=== PATIENT | male | born 1965 | race Caucasian/White ===

== ENCOUNTER 2023-10-04 19:25 | Inpatient (IN) | payer MEDICAID, SELFPAY ==
[2023-10-04 19:26] VITALS: BP 119/82; PULSE 144; RESP 18; TEMP 36.7; O2SAT 97; BMI 20.9
--- NOTE | 2023-10-04 19:41 | EKG12_ITS ---
Test Reason : DYSRHYTHMIA Blood Pressure : / mmHG Vent. Rate : 142 BPM Atrial Rate : 142 BPM P-R Int : 150 ms QRS Dur : 078 ms QT Int : 250 ms P-R-T Axes : 038 031 039 degrees QTc Int : 384 ms Critical Test Result: High HR Sinus tachycardia Septal infarct , age undetermined Abnormal ECG Confirmed by JAYESH MAYNARD, CAL ([id number]), editor producer CARLOS MATA ([id number]) on 10/06/2023 9:54:16 AM Referred By: Confirmed By:CAL MCCONNELL MD
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
[2023-10-04 19:47] VITALS: BP 119/82; PULSE 144; RESP 18; TEMP 36.7; O2SAT 97
--- NOTE | 2023-10-04 20:10 | CT_ITS ---
EXAM: CT Abdomen And Pelvis W/ Contrast Injection HISTORY: pressure wound TECHNIQUE: Routine protocol CT abdomen pelvis. IV Contrast: IV 100mL Isovue-370 . Oral Contrast: without. Sagittal and coronal images were reconstructed. RADIATION DOSAGE (If Supplied By Facility): CTDIvol = ( 11.79 ) mGy, DLP = ( 763.65 ) mGycm Individualized dose optimization techniques were used for this CT. COMPARISON: None. LIMITATIONS: None. FINDINGS: LOWER CHEST: Dependent atelectasis in the lung bases. LIVER: Unremarkable. GALLBLADDER/BILE DUCTS: Unremarkable. PANCREAS: Unremarkable. SPLEEN: Unremarkable. ADRENAL GLANDS: Calcifications in the right adrenal. KIDNEYS / URETERS: Small calculus in the right kidney and likely a tiny calculus in the left kidney. Prominent enhancing wall of the ureters to the renal pelvis bilaterally with periureteral stranding greater on the left. No hydronephrosis. BOWEL / MESENTERY: Fluid distended nondilated small bowel in the mid through lower abdomen. No bowel obstruction. APPENDIX: Identified and normal. No evidence of acute appendicitis. PERITONEUM: No free air. No free fluid. VESSELS: Abdominal aorta is normal caliber. RETROPERITONEUM: Unremarkable. REPRODUCTIVE ORGANS: Unremarkable. BLADDER: Mildly distended with lobulated contour. Diffuse wall thickening. ABDOMINAL WALL: No air in the soft tissues. Prominent inguinal lymph nodes bilaterally.. BONES: Degenerative changes of both hips with partial posterior subluxation of the right hip. Bony excrescences anteriorly at the anterior inferior iliac spine bilaterally, fragmentation and indistinct cortical margins, surrounding soft tissue thickening which extends about both hips. Questionable small bilateral joint effusion versus soft tissue thickening. Soft tissue thickening overlying the proximal femurs laterally at the greater trochanter bilaterally, greater on the right, with mild subcutaneous stranding. No definite cortical destruction or localized collection at these sites. There is also mild soft tissue thickening overlying the mid sacrum through coccyx, with no definite cortical destruction. Degenerative changes in the lumbar spine. OTHER: None. CT/Abdomen/Pelvis W IV Cont ONLY IMPRESSION: 1. Urinary bladder wall thickening consistent with cystitis or other process. Wall thickening of the ureters to the renal pelvis bilaterally likely secondary pyelitis. Other process including malignancy is not excluded. No hydronephrosis. 2. Bilateral nephrolithiasis. 3. Fluid distended small bowel consistent with ileus versus enteritis. 4. Changes about both hips especially at the anterior inferior iliac spine suspicious for osteomyelitis, to lesser extent along the greater trochanters and sacrum/coccyx. Soft tissue thickening about the hips may be inflammatory or reactive. MRI may be helpful to evaluate for osteomyelitis and/or joint effusion or septic joint. Electronically Signed: Dasha Stallworth MD at 21:03 EST ,
[2023-10-04 20:13] LABS: Absolute Lymphocyte Count 6.07 X10^3/uL (0.83-4.51); Absolute Neutrophil Count 23.2 X10^3/uL (2.0-7.7); Basophil# 0.16 X10^3/uL; Basophil% 0.5 % (0-1); Eosinophil# 0.24 X10^3/uL; Eosinophils% 0.7 % (0-5); Hematocrit 36.2 % (40-54); Hemoglobin 10.6 g/dL (13.0-16.5); Lymphocyte # 6.07 X10^3/ul (0.83-4.51); Mean Corp Hgb Conc 29.3 g/dL (32-36); Mean Corpuscular Hgb 24.9 pg (27.0-32.0); Mean Platelet Vol. 10.2 fl (6.2-12.0); Monocyte# 3.28 X10^3/uL; Monocyte% 9.7 % (0-10); NRBC Flagged by Analyzer 0.1 % (0-5); Neutrophil # 23.22 X10^3/uL (2.7-7.7); Neutrophil % 68.6 % (47-70); POSITIVE COUNT YES; POSITIVE DIFFERENTIAL YES; POSITIVE MORPHOLOGY YES; RBC Distribution Width CV 22.9 % (11.6-14.6); RBC Distribution Width SD 66.5 fl (35.1-43.9); Red Blood Count 4.26 M/mm3 (4.6-6.2)
[2023-10-04] MEDS: Acetaminophen 500 MG Tablet 1000 MG PO (20:16)
[2023-10-04] MEDS: 0.9% Normal Saline (1000mL) 1,000 ML 999 ML IV ×2 (20:17→22:02)
[2023-10-04 20:20] LABS: ALB/GLOB Ratio 0.5 RATIO (0.9-2.4); AST(SGOT) 18 U/L (15-37); Alanine Aminotransfer ALT/SGPT 23 U/L (16-61); Albumin, Serum 2.5 g/dL (3.2-5.0); Alkaline Phosphatase 186 U/L (45-117); Anion Gap 5 (5-15); BUN 16 mg/dL (7-18); BUN/Creat Ratio 17.9 RATIO (10-20); Calcium,Total 8.7 mg/dL (8.5-10.1); Chloride 108 mmol/L (98-107); Creatinine, Serum 0.89 mg/dL (0.70-1.30); EST Glomerular Filtration Rate 93 mL/min (>60); Est Glom Filt Rate - Afr Amer 113 mL/min (>60); Estimated Creatinine Clearance 98.18 ml/min; Glucose 114 mg/dL (74-106); Potassium 4.5 mmol/L (3.5-5.1); Protein, Total 7.5 g/dL (6.4-8.2); Sodium Level 137 mmol/L (136-145)
[2023-10-04 20:24] LABS: Differential Indicated SCAN CRITERIA MET; Platelet Count 833 K/mm3 (150-450); White Blood Count 33.8 K/mm3 (4.4-11.0)
[2023-10-04 20:32] LABS: Lactic Acid 2.7 mmol/L (0.4-1.9)
--- NOTE | 2023-10-04 20:32 | RAD_ITS ---
INDICATION: fever EXAMINATION/TECHNIQUE: X-RAY - XR Chest 1 View AP portable. 8:33 PM COMPARISON: None. FINDINGS: LINES/DEVICES: None. LUNGS: No consolidation. No pneumothorax. MEDIASTINUM: Unremarkable. CARDIAC SILHOUETTE: Not enlarged. BONES AND SOFT TISSUES: No acute abnormalities. Surgical hardware lower cervical upper thoracic spine. RAD/Chest 1 View (Portable) IMPRESSION: No evidence of active intrathoracic disease. Electronically Signed: Dasha Stallworth MD at 21:08 EST ,
[2023-10-04 20:37] LABS: Anisocytosis 2+; Differential Comment SCANNED
[2023-10-04 21:03] LABS: Bacteria 0 SEEN /hpf (None Seen); Mucous, Urine 0 SEEN /hpf (<or=2+); Red Blood Cells-Urine 0 SEEN /hpf (0-5); Squamous Epithelial Cells - UA 0 SEEN /hpf (0-5)
[2023-10-04 21:06] LABS: Color, Urine Yellow (Yellow); Glucose, Dipstick Normal (Normal); Ketone-Dipstick 5 mg/dl (Negative); Leukocyte Esterase-Dipstick 500 /ul (Negative); Nitrite-Dipstick Positive (Negative); Occult Blood-Urine 150 /ul (Negative); Protein-Dipstick 100 mg/dl (Negative); Specific Gravity, Urine 1.015 (1.002-1.030); Urine Bilirubin Dipstick Negative (Negative); Urine Clarity Cloudy (Clear); Urine Urobilinogen Normal (Normal)
[2023-10-04 21:20] LABS: International Normalized Ratio 1.3; Prothrombin Time (Protime)PT. 16.5 SECONDS (11.7-14.9)
[2023-10-04 21:21] LABS: Partial Thromboplast Time 40.7 Seconds (24.1-36.2)
[2023-10-04 21:26] VITALS: BP 114/71; PULSE 130; RESP 21; O2SAT 93
[2023-10-04 21:33] VITALS: BP 114/61; PULSE 112; RESP 23; TEMP 37; O2SAT 94
[2023-10-04 21:33] LABS: White Blood Cells >100 SEEN /hpf (0-5)
[2023-10-04] MEDS: Piperacil/Tazobactam 3.375 GM in 0.9% Normal Saline (50mL MB+) 50 ML IV (22:03)
[2023-10-04 22:06] VITALS: BP 124/72; PULSE 125; RESP 21; TEMP 38.3; O2SAT 97
[2023-10-04 22:30] VITALS: BP 111/72; PULSE 125; RESP 21; TEMP 38.3; O2SAT 94
[2023-10-04] MEDS: Vancomycin HCl 1,250 MG in 0.9% Normal Saline (250mL Bag) 250 ML 167 MG IV (22:55)
--- NOTE | 2023-10-04 23:06 | PCM.HP.STD ---
[facility] - General General Date of Service: 10/04/23 Chief Complaint: Fever. [facility] Narrative ELENA HARPER, is a 58 M who presents with fever lethargy. Patient was in his normal state of health today acutely ill after breakfast. He was having fever of the 100 405 Fahrenheit. Very wiped out. Patient has a known paraplegic that does have a chronic sacral decubitus ulcer. He states that the ulcer is actually was very large, so large. Clear festinate's, but it is overall healing. He is normally incontinent but does not have catheter nor straight cath but he uses a diaper. With his severe illness, he was sent to the hospital for evaluation. When he arrived, he was normotensive but tachycardic. Temp here was 38.3 centigrade. White count was profoundly elevated at 33.8 thousand, lactic acid was 2.7, urinalysis was grossly positive for urinary tract infection. He underwent a chest x-ray that was unremarkable. CAT scan of his abdomen pelvis showed urinary bladder wall thickening consistent with cystitis. Bilateral nephrolithiasis. Fluid distended small bowel consistent with ileus versus enteritis. Changes about both hips especially in the anterior inferior iliac spine suspicious for osteomyelitis, to a lesser extent along the greater trochanters and sacrum/coccyx. Patient received piperacillin/tazobactam and vancomycin in the emergency room. He did receive 3 L of IV fluids in the emergency room. States that he is currently feeling somewhat better at this time. PENDING SALE TO [facility] Medical History (Updated 10/04/23 @ 23:[address] Kelvin Metcalf DO) Paraplegia, unspecified Pulmonary emboli Sacral decubitus ulcer, stage IV Home Medications anagrelide 1 mg capsule 2 mg PO BID 10/04/23 [History Last Taken Unknown] apixaban 5 mg tablet (Eliquis) 5 mg PO BID 10/04/23 [History Last Taken Unknown] cyclobenzaprine 10 mg tablet 10 mg PO TID 10/04/23 [History Last Taken Unknown] gabapentin 400 mg capsule 400 mg PO QHS 10/04/23 [History Last Taken Unknown] Allergy/AdvReac Type Severity Reaction Status Date / Time No Known Allergies Allergy Verified 10/04/23 19:34 Surgical History (Updated 10/04/23 @ 23:[address] Kelvin Jopperi, DO) H/O Spinal surgery H/O splenectomy Social History (Updated 10/04/23 @ 23:[address] Kelvin Metcalf, DO) Smoking Status: Current every day smoker tobacco type: cigarettes alcohol intake: current alcohol intake frequency: a few times a week substance use type: marijuana ROS ROS Narrative Is a paraplegic. States that he gets short of breath when his legs are straightened out due to spasms of his legs. No chest pain, no rhinitis. All review of systems were negative except as mentioned above in the history of present illness and the other review of systems. Vital Signs Vital Signs Vital Signs: 10/04/23 19:26 10/04/23 19:47 10/04/23 19:47 Temperature 36.7 C 36.7 C Temperature Source Oral Oral Pulse Rate 144 H 144 H Respiratory Rate 18 18 Respiratory Pattern Blood Pressure 119/82 H 119/82 H Blood Pressure Mean 94 94 Pulse Ox 97 97 Oxygen Delivery Method Room Air Room Air Room Air 10/04/23 19:49 10/04/23 21:26 10/04/23 21:33 Temperature 37.0 C Temperature Source Oral Pulse Rate 130 H 112 H Respiratory Rate 21 H 23 H Respiratory Pattern Tachypnea Blood Pressure 114/71 114/61 Blood Pressure Mean 85 78 Pulse Ox 93 94 Oxygen Delivery Method Room Air Room Air 10/04/23 22:06 10/04/23 22:30 Temperature 38.3 C H 38.3 C H Temperature Source Oral Pulse Rate 125 H 125 H Respiratory Rate 21 H 21 H Respiratory Pattern Blood Pressure 124/72 H 111/72 Blood Pressure Mean 89 85 Pulse Ox 97 94 Oxygen Delivery Method Room Air Weight Weight: 75.8 kg Body Mass Index (BMI) 20.9 Physical Exam Const alert and no apparent distress Constitutional Narrative: Initially disoriented when he first arrived but came to quickly was otherwise appropriate. General Appearance: cooperative HEENT normocephalic, head/scalp atraumatic and moist oral mucous membranes Eyes EOMs intact bilaterally Eyes Narrative: Glasses. No icterus Neck no lymphadenopathy Neck Narrative: No thyromegaly Resp normal respiratory effort, no retractions, no use of accessory muscles and clear to auscultation bilaterally Cardio regular rate, regular rhythm, S1 normal heart sound and S2 normal heart sound GI normal to inspection, nondistended, normoactive bowel sounds, soft to palpation, non-tender and non-distended Extremity Extremity Narrative: Bilateral flexion contractures of the lower extremities. Skin Skin Narrative: Healing stage IV decubitus ulcer with defect distally. No purulence, no surrounding erythema appreciated. Neuro Neuro Narrative: Paraplegic. Moves upper extremities without difficulty. Sensorium / Orientation: awake and alert Psych affect normal Results Lab / Micro Data Attestation: I reviewed the patient's lab results. 10/04/23 19:40 10/04/23 19:40 Labs: Laboratory Results - last 24 hr 10/04/23 19:40: WBC 33.8 H*, RBC 4.26 L, Hgb 10.6 L, Hct 36.2 L, MCV 85.0, MCH 24.9 L, MCHC 29.3 L, RDW Std Deviation 66.5 H, RDW Coeff of Lauren 22.9 H, Plt Count 833 H*, MPV 10.2, Immature Gran % (Auto) 2.500 H, Neut % (Auto) 68.6, Lymph % (Auto) 18.0 L, [place] % (Auto) 9.7, Eos % (Auto) 0.7, Baso % (Auto) 0.5, Absolute Neuts (auto) 23.2 H, Absolute Lymphs (auto) 6.07 H, Nucleated RBC % 0.1, Differential Comment SCANNED, Diff Path Review March, Anisocytosis 2+, PT Cancelled, INR Cancelled, APTT Cancelled, Sodium 137, Potassium 4.5, Chloride 108 H, Carbon Dioxide 24.0, Anion Gap 5, BUN 16, Creatinine 0.89, Estim Creat Clear Calc 98.18, Est GFR (MDRD) Af Amer 113, Est GFR (MDRD) Non-Af 93, BUN/Creatinine Ratio 17.9, Glucose 114 H, Lactic Acid 2.7 H*, Calcium 8.7, Total Bilirubin 0.30, AST 18, ALT 23, Alkaline Phosphatase 186 H, Total Protein 7.5, Albumin 2.5 L, Globulin 5.0 H, Albumin/Globulin Ratio 0.5 L 10/04/23 20:55: Urine Color Yellow, Urine Clarity Cloudy, Urine pH 6.0, Ur Specific [place] 1.015, Urine Protein 100 H, Urine Glucose (UA) Normal, Urine Ketones 5 H, Urine Occult Blood 150 H, Urine Nitrite Positive H, Urine Bilirubin Negative, Urine Urobilinogen Normal, Ur Leukocyte Esterase 500 H, Urine RBC 0 SEEN, Urine WBC >100 SEEN, Ur Squamous Epith Cells 0 SEEN, Urine Bacteria 0 SEEN, Urine Mucus 0 SEEN 10/04/23 21:02: PT 16.5 H, INR 1.3, APTT 40.7 H Micro: Microbiology 10/04/23 19:50 Nasal Secretion SARS-CoV-2 & FLU Antigen (Rapid) - Final EKG Initial EKG: Attestation: I personally reviewed and interpreted this EKG as follows: Prior EKG tracings: available for review EKG Rhythm Intrepretation: Sinus Tachycardia Imagaing Radiology Impression Abdomen/Pelvis CT 10/04/23 20:10 IMPRESSION: 1. Urinary bladder wall thickening consistent with cystitis or other process. Wall thickening of the ureters to the renal pelvis bilaterally likely secondary pyelitis. Other process including malignancy is not excluded. No hydronephrosis. 2. Bilateral nephrolithiasis. 3. Fluid distended small bowel consistent with ileus versus enteritis. 4. Changes about both hips especially at the anterior inferior iliac spine suspicious for osteomyelitis, to lesser extent along the greater trochanters and sacrum/coccyx. Soft tissue thickening about the hips may be inflammatory or reactive. MRI may be helpful to evaluate for osteomyelitis and/or joint effusion or septic joint. Electronically Signed: Dasha Stallworth MD at 21:03 EST Reading Location ID and State: [address] [place] [address] Tel , Service support , Chest X-Ray 10/04/23 20:32 IMPRESSION: No evidence of active intrathoracic disease. Electronically Signed: Dasha Stallworth MD at 21:08 EST , Assessment & Plan Assessment/Plan (1) Sepsis: PLAN: Present on admission. qSOFA 2 with respiratory rate greater than 22 and initial confusion which is since resolved. SIRS 4/4 temperature of 33, heart rate 144, respiratory rate of 23 and white count of 33.8. Etiology may be due to urinary tract infection only but cannot rule out the possibility of osteomyelitis. Patient received pip-tazo and vancomycin in the emergency room. Will continue that on the floor. Blood cultures, urine, and wound culture have been performed. Follow-up on that. Additionally check an MRSA swab of his wound. Follow-up cultures and adjust antibiotics accordingly. (2) UTI (urinary tract infection): PLAN: Patient is paraplegic and may have a neurogenic bladder. He is has no control and he does wear protective undergarments. With his decubitus ulcer may benefit from chronic Kothari catheter. Follow-up urine culture. Continue with pip-tazo for now. (3) Sacral decubitus ulcer, stage IV: PLAN: Overall healing. Patient said it was a very large, large Opticlear for stent. This. Healing and there is no surrounding erythema nor any purulence that I expressed with palpation. However the CAT scan is concerning for possibility of osteomyelitis. Is unclear if there is true osteomyelitis or if these are his chronic changes due to his chronic paraplegia. Continue antibiotics with the pip-tazo and vancomycin for now. Check an MRI of his pelvis. PLAN: Plan Chronic conditions Paraplegia: Will have physical Occupational Therapy see him. He does have chronic flexion contractures to lower extremities. VTE: Continue with apixaban Tobacco abuse: Patient smokes about half pack per day. States that he does not need any nicotine patch at this time. DVT prophylaxis: Not indicated as he is already on apixaban. Sepsis Attestation Sepsis Alert: Yes Sepsis Attestation: Agree w/Sepsis Date exam was performed: 10/04/23 Time exam was performed: 23:00 Possible Source of Sepsis: Genitourinary and Wound Sepsis Organ Dysfunction Criteria Present: Lactic Acid > 2 mmol/L Supportive Findings: Patient with a white count of 33.8 meeting 44 SIRS criteria as well as to 3 qSOFA criteria with change in mental status as well as tachypnea. Patient did respond well with IV fluids. Does not require pressor support at this time. Does still remain tachycardic. No additional boluses of IV fluid are necessary at this time. Charges/Coding Visit Charges Inpatient E&M: 84177 Init Hosp L3
[2023-10-04] MEDS: 0.9% Normal Saline (500mL Bag) 250 ML 999 ML IV (23:10)
[2023-10-04 23:56] LABS: Reflex Lactate? Y
[2023-10-05] VITALS (8 sets, daily range): BP systolic 92–112; BP diastolic 58–79; PULSE 108–124; RESP 16–20; TEMP 36.4–39.4; O2SAT 94–97; BMI 21.3
--- NOTE | 2023-10-05 00:54 | PHA.PHARE_ITS ---
Consult Antibiotic Management Pharmacy has been consulted to manage selected antiobiotic: Vancomycin Type of Intervention Type of Consult: New start Labs Labs: Sodium 137 mmol/L (136-145) 10/04/23 19:40 Potassium 4.5 mmol/L (3.5-5.1) 10/04/23 19:40 Chloride 108 mmol/L (98-107) H 10/04/23 19:40 Carbon Dioxide 24.0 mmol/L (21.0-32.0) 10/04/23 19:40 Anion Gap 5 (5-15) 10/04/23 19:40 BUN 16 mg/dL (7-18) 10/04/23 19:40 Creatinine 0.89 mg/dL (0.70-1.30) 10/04/23 19:40 Est GFR (MDRD) Af Amer 113 mL/min (>60) 10/04/23 19:40 Est GFR (MDRD) Non-Af 93 mL/min (>60) 10/04/23 19:40 BUN/Creatinine Ratio 17.9 RATIO (10-20) 10/04/23 19:40 Glucose 114 mg/dL (74-106) H 10/04/23 19:40 Microbiology Microbiology: Microbiology 10/04/23 19:50 Nasal Secretion SARS-CoV-2 & FLU Antigen (Rapid) - Final Dosing Weight Weight used for dosin.5 kg Estimated Creatinine Clearance Estimated Creatinine Clearance: 98 Goal Trough Goal Trough: 15-20 mcg/mL Pharmacy Plan for Drug Dosing Pharmacy Plan for Drug Dosing: Pharmacy Service will continue to monitor and adjust dosing as required. Follow-Up Labs Follow-Up Labs: Trough: Vancomycin Date/Time Labs Ordered Labs to be done on [date and time ordered]: 10/06 @ 1038
[2023-10-05] MEDS: 0.9% Normal Saline (1000mL) 1,000 ML 150 ML IV (01:03)
[2023-10-05 01:04] LABS: Lactic Acid 1.9 mmol/L (0.4-1.9)
[2023-10-05] MEDS: cycloBENZAPRine HCl 10 MG Tablet PO ×3 (05:28→21:51)
[2023-10-05] MEDS: Acetaminophen 325 MG Tablet 650 MG PO ×4 (05:28→21:50)
[2023-10-05] MEDS: APIXABAN 5 MG TABLET PO ×2 (08:19→21:51)
[2023-10-05] MEDS: Ensure Plus High Protein 120 ML LIQUID PO ×2 (08:19→16:51)
--- NOTE | 2023-10-05 08:19 | PN.HOSP_ITS ---
Reason for Visit Reason for Visit: Diagnoses Sepsis, unspecified organism (10/04/23) Pressure ulcer of sacral region, stage 4 (10/04/23) Urinary tract infection, site not specified (10/04/23) Subjective Subjective Patient laying in bed with family member at bedside, reports feeling tired and worn out overall Objective Data Objective Data Vital Signs: Vital Signs Temp Pulse Resp BP Pulse Ox O2 Del Method 98.3 F 119 H 18 109/78 94 Room Air 10/05/23 08:08 10/05/23 08:08 10/05/23 08:08 10/05/23 08:08 10/05/23 08:08 10/05/23 08:08 Oxygen Delivery Method Room Air Weight: 77.54 kg Body Mass Index (BMI) 21.3 Intake & Output: Intake and Output for Last 24 Hours 10/03/23 10/04/23 10/05/23 23:59 23:59 23:59 Intake Total 1050 / 1050 1525 / 1525 Output Total 500 / 500 Balance 1050 / 1050 1025 / 1025 Lab / Micro Data 10/05/23 09:01 10/05/23 09:01 Labs: Laboratory Results - last 24 hr 10/04/23 19:40: WBC 33.8 H*, RBC 4.26 L, Hgb 10.6 L, Hct 36.2 L, MCV 85.0, MCH 24.9 L, MCHC 29.3 L, RDW Std Deviation 66.5 H, RDW Coeff of Lauren 22.9 H, Plt Count 833 H*, MPV 10.2, Immature Gran % (Auto) 2.500 H, Neut % (Auto) 68.6, Lymph % (Auto) 18.0 L, Harper % (Auto) 9.7, Eos % (Auto) 0.7, Baso % (Auto) 0.5, Absolute Neuts (auto) 23.2 H, Absolute Lymphs (auto) 6.07 H, Nucleated RBC % 0.1, Differential Comment SCANNED, Diff Path Review May foll, Anisocytosis 2+, PT Cancelled, INR Cancelled, APTT Cancelled, Sodium 137, Potassium 4.5, Chloride 108 H, Carbon Dioxide 24.0, Anion Gap 5, BUN 16, Creatinine 0.89, Estim Creat Clear Calc 98.18, Est GFR (MDRD) Af Amer 113, Est GFR (MDRD) Non-Af 93, BUN/Creatinine Ratio 17.9, Glucose 114 H, Lactic Acid 2.7 H*, Calcium 8.7, Total Bilirubin 0.30, AST 18, ALT 23, Alkaline Phosphatase 186 H, Total Protein 7.5, Albumin 2.5 L, Globulin 5.0 H, Albumin/Globulin Ratio 0.5 L 10/04/23 20:55: Urine Color Yellow, Urine Clarity Cloudy, Urine pH 6.0, Ur Specific [place] 1.015, Urine Protein 100 H, Urine Glucose (UA) Normal, Urine Ketones 5 H, Urine Occult Blood 150 H, Urine Nitrite Positive H, Urine Bilirubin Negative, Urine Urobilinogen Normal, Ur Leukocyte Esterase 500 H, Urine RBC 0 SEEN, Urine WBC >100 SEEN, Ur Squamous Epith Cells 0 SEEN, Urine Bacteria 0 SEEN, Urine Mucus 0 SEEN 10/04/23 21:02: PT 16.5 H, INR 1.3, APTT 40.7 H 10/05/23 00:30: Lactic Acid 1.9 Micro: Microbiology 10/04/23 19:50 Nasal Secretion SARS-CoV-2 & FLU Antigen (Rapid) - Final Radiography Diagnostic Testing: Radiology Impression Abdomen/Pelvis CT 10/04/23 20:10 IMPRESSION: 1. Urinary bladder wall thickening consistent with cystitis or other process. Wall thickening of the ureters to the renal pelvis bilaterally likely secondary pyelitis. Other process including malignancy is not excluded. No hydronephrosis. 2. Bilateral nephrolithiasis. 3. Fluid distended small bowel consistent with ileus versus enteritis. 4. Changes about both hips especially at the anterior inferior iliac spine suspicious for osteomyelitis, to lesser extent along the greater trochanters and sacrum/coccyx. Soft tissue thickening about the hips may be inflammatory or reactive. MRI may be helpful to evaluate for osteomyelitis and/or joint effusion or septic joint. Electronically Signed: Dasha Stallworth MD at 21:03 EST , Chest X-Ray 10/04/23 20:32 IMPRESSION: No evidence of active intrathoracic disease. Electronically Signed: Dasha Stallworth MD at 21:08 EST , Physical Exam Narrative General: Alert, oriented, appears tired HEENT: Atraumatic, normocephalic Eyes: Anicteric, normal conjunctiva, extraocular movements grossly intact Neck: Supple Respiratory: Clear to auscultation bilaterally, normal respiratory effort Cardiovascular: Mild sinus tach GI: Soft, nontender, nondistended Extremities: No edema Musculoskeletal: Laying on side with legs drawn up Neuro: Patient laying on side with legs drawn up, history of paraplegia Skin: Known stage IV decubitus ulcer Psych: Cooperative Assessment & Plan Assessment/Plan (1) Sepsis: (2) UTI (urinary tract infection): (3) Sacral decubitus ulcer, stage IV: PLAN: Plan 58-year-old male history of PE and paraplegia as well as chronic sacral dec ubitus presented 10/04/2023 for fever and lethargy. Was in his normal state of health and then became acutely ill and was found to have a fever and concerns for sepsis and was admitted to the hospital. #Sepsis likely secondary to UTI -qSOFA on presentation was 2 with altered mental status that had since resolved and tachypnea -Additionally febrile up to 100.9, patient tachycardic, lactic acid 2.7 and white blood cell count 33.8 -CT abdomen pelvis in ED with urinary bladder wall thickening consistent with cystitis, bilateral nephrolithiasis and fluid distended small bowel consistent with ileus versus enteritis and changes in both hips cannot rule out osteomyelitis. Chest x-ray unremarkable. Patient was given 3 L IV fluid and started on Zosyn and hospitalist contacted for admission -Concern is that sepsis is secondary to UTI though cannot rule out osteo based on imaging, MRI pelvis ordered -Broad-spectrum antibiotics initiated, following up cultures -We will add on ESR and CRP's this can be trended as well -10/05: Elevated ESR and CRP, will repeat in a.m. for trending purposes. Pat ient MRSA positive, buttock wound growing gram-positive organism and urine growing gram-negative berta lactose sales planning coordinator, continue Vanco and Zosyn, patient still mildly febrile and tachycardic, will start some maintenance fluids, blood cultures pending. MRI of pelvis tomorrow. May need ID consult pending cultures #Urinary tract infection -Patient paraplegic and wears protective undergarments and does not straight cath or have Kothari catheter, does have chronic decubitus wound and may benefit from chronic Kothari or suprapubic catheter -Cultures pending -Continue antibiotics -10/05: Gram-negative berta lactose sales planning coordinator growing in urine, appears to have external catheter on, will bladder scan and place Kothari catheter if retaining #Stage IV decubitus ulcer -Has been healing -CT scan concerning for possible osteo however it is unclear if true osteo or chronic changes, on broad-spectrum antibiotics -MRI of pelvis ordered -Consult wound care -10/05: MRI pelvis tomorrow and wound care consult #Anemia and thrombocytosis -May be anemia of chronic disease and platelet count could be reactive however will check iron panel for the a.m. Chronic conditions * Paraplegia with incontinence: Will have physical Occupational Therapy see him. He does have chronic flexion contractures to lower extremities, also Kothari catheter * VTE: Continue with apixaban * Tobacco abuse: Patient smokes about half pack per day. States that he does not need any nicotine patch at this time. DVT prophylaxis: Already on apixaban Charges/Coding Visit Charges Inpatient E&M: 39712 Subs Hosp L2
[2023-10-05 08:43] LABS: M R Staph aureus DNA By PCR POSITIVE (Negative); Probe Check PASS; Staph aureus DNA By PCR POSITIVE (Negative)
[2023-10-05 09:21] LABS: Absolute Lymphocyte Count 4.19 X10^3/uL (0.83-4.51); Absolute Neutrophil Count 24.1 X10^3/uL (2.0-7.7); Basophil% 0.3 % (0-1); Eosinophil# 0.14 X10^3/uL; Eosinophils% 0.4 % (0-5); Hematocrit 31.5 % (40-54); Hemoglobin 9.5 g/dL (13.0-16.5); Lymphocyte # 4.19 X10^3/ul (0.83-4.51); Lymphocyte % 13.1 % (19-41); Mean Corp Hgb Conc 30.2 g/dL (32-36); Mean Corpuscular Hgb 25.4 pg (27.0-32.0); Mean Corpuscular Volume 84.2 fL (80-94); Mean Platelet Vol. 9.5 fl (6.2-12.0); Monocyte# 2.91 X10^3/uL; Monocyte% 9.1 % (0-10); NRBC Flagged by Analyzer 0.1 % (0-5); Neutrophil # 24.14 X10^3/uL (2.7-7.7); Neutrophil % 75.3 % (47-70); POSITIVE COUNT YES; POSITIVE DIFFERENTIAL YES; POSITIVE MORPHOLOGY YES; Platelet Count 796 K/mm3 (150-450); RBC Distribution Width CV 22.4 % (11.6-14.6); RBC Distribution Width SD 65.4 fl (35.1-43.9); Red Blood Count 3.74 M/mm3 (4.6-6.2)
[2023-10-05 09:25] LABS: Differential Indicated SCAN CRITERIA MET; White Blood Count 32.1 K/mm3 (4.4-11.0)
[2023-10-05 09:29] LABS: Erythrocyte Sedimentation Rate 54 mm/hr (0-20)
[2023-10-05 09:43] LABS: ALB/GLOB Ratio 0.5 RATIO (0.9-2.4); AST(SGOT) 13 U/L (15-37); Alanine Aminotransfer ALT/SGPT 18 U/L (16-61); Albumin, Serum 2.2 g/dL (3.2-5.0); Alkaline Phosphatase 162 U/L (45-117); Anion Gap 6 (5-15); BUN 13 mg/dL (7-18); BUN/Creat Ratio 16.9 RATIO (10-20); Calcium,Total 8.4 mg/dL (8.5-10.1); Chloride 112 mmol/L (98-107); Creatinine, Serum 0.77 mg/dL (0.70-1.30); EST Glomerular Filtration Rate 110 mL/min (>60); Est Glom Filt Rate - Afr Amer 134 mL/min (>60); Estimated Creatinine Clearance 116.09 ml/min; Globulin 4.4 g/dL (2.2-4.2); Glucose 121 mg/dL (74-106); Potassium 3.5 mmol/L (3.5-5.1); Protein, Total 6.6 g/dL (6.4-8.2); Sodium Level 140 mmol/L (136-145)
[2023-10-05] MEDS: Piperacil/Tazobactam 3.375 GM in 0.9% Normal Saline (50mL MB+) 50 ML IV ×3 (10:51→21:51)
[2023-10-05 11:11] LABS: Anisocytosis 2+; Differential Comment SCANNED; Macrocytosis 1+; Microcytosis 1+; Platelet Estimate MKD INC (ADEQ)
[2023-10-05] MEDS: Vancomycin HCl 1,500 MG in 0.9% Normal Saline (500mL Bag) 500 ML 250 MG IV ×2 (12:22→23:14)
[2023-10-05] MEDS: 0.9% Normal Saline (1000mL) 1,000 ML 75 ML IV (16:51)
[2023-10-05] MEDS: Gabapentin 400 MG Capsule PO (21:53)
[2023-10-06 00:26] VITALS: TEMP 37.4
[2023-10-06 03:47] VITALS: BP 129/84; PULSE 118; RESP 16; TEMP 37.6; O2SAT 98
[2023-10-06] MEDS: Acetaminophen 325 MG Tablet 650 MG PO ×2 (05:12→21:52)
[2023-10-06] MEDS: Nystatin Powder 15gm Bottle 1 APPLIC TOPICAL ×3 (05:13→21:53)
[2023-10-06] MEDS: Piperacil/Tazobactam 3.375 GM in 0.9% Normal Saline (50mL MB+) 50 ML IV ×3 (05:13→21:53)
[2023-10-06] MEDS: cycloBENZAPRine HCl 10 MG Tablet PO ×3 (05:13→21:51)
[2023-10-06 06:40] LABS: Absolute Lymphocyte Count 3.81 X10^3/uL (0.83-4.51); Absolute Neutrophil Count 26.7 X10^3/uL (2.0-7.7); Basophil% 0.3 % (0-1); Eosinophil# 0.15 X10^3/uL; Eosinophils% 0.4 % (0-5); Hematocrit 29.4 % (40-54); Hemoglobin 8.7 g/dL (13.0-16.5); Lymphocyte # 3.81 X10^3/ul (0.83-4.51); Lymphocyte % 11.4 % (19-41); Mean Corp Hgb Conc 29.6 g/dL (32-36); Mean Corpuscular Volume 84.5 fL (80-94); Mean Platelet Vol. 9.6 fl (6.2-12.0); Monocyte# 2.32 X10^3/uL; Monocyte% 6.9 % (0-10); NRBC Flagged by Analyzer 0.1 % (0-5); Neutrophil # 26.71 X10^3/uL (2.7-7.7); Neutrophil % 79.7 % (47-70); POSITIVE COUNT YES; POSITIVE DIFFERENTIAL YES; POSITIVE MORPHOLOGY YES; Platelet Count 746 K/mm3 (150-450); RBC Distribution Width CV 22.4 % (11.6-14.6); RBC Distribution Width SD 66.5 fl (35.1-43.9); Red Blood Count 3.48 M/mm3 (4.6-6.2)
[2023-10-06 06:54] LABS: Differential Indicated SCAN CRITERIA MET; White Blood Count 33.5 K/mm3 (4.4-11.0)
[2023-10-06 07:19] LABS: Anion Gap 7 (5-15); BUN 11 mg/dL (7-18); BUN/Creat Ratio 15.4 RATIO (10-20); Calcium,Total 8.4 mg/dL (8.5-10.1); Chloride 109 mmol/L (98-107); Creatinine, Serum 0.71 mg/dL (0.70-1.30); EST Glomerular Filtration Rate 121 mL/min (>60); Est Glom Filt Rate - Afr Amer 146 mL/min (>60); Ferritin 733 ng/mL (26-388); Glucose 106 mg/dL (74-106); Iron 11 ug/dL (65-175); Iron Binding Capacity,Total 160 ug/dL (250-450); PERCENT IRON SATURATION 6.9 % (15.0-55.0); Potassium 3.6 mmol/L (3.5-5.1); Sodium Level 138 mmol/L (136-145)
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
[2023-10-06 08:32] LABS: Erythrocyte Sedimentation Rate 75 mm/hr (0-20)
[2023-10-06] MEDS: Ensure Plus High Protein 120 ML LIQUID PO ×3 (08:44→19:14)
[2023-10-06] MEDS: Menthol/Lanolin/Calamine/Znox 113 GM Tube 1 APPLIC TOPICAL ×4 (08:49→21:53)
[2023-10-06] MEDS: APIXABAN 5 MG TABLET PO ×2 (08:49→21:54)
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
[2023-10-06 09:37] LABS: Anisocytosis 1+
[2023-10-06 09:47] VITALS: BP 105/75; PULSE 92; RESP 18; TEMP 36.1; O2SAT 95
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
[2023-10-06 13:01] LABS: Vancomycin, Trough Level 16.4 ug/mL (5.0-15.0)
--- NOTE | 2023-10-06 13:10 | PHA.PHARE_ITS ---
Consult Antibiotic Management Pharmacy has been consulted to manage selected antiobiotic: Vancomycin Type of Intervention Type of Consult: Follow-up Labs Labs: Sodium 138 mmol/L (136-145) 10/06/23 05:35 Potassium 3.6 mmol/L (3.5-5.1) 10/06/23 05:35 Chloride 109 mmol/L (98-107) H 10/06/23 05:35 Carbon Dioxide 22.0 mmol/L (21.0-32.0) 10/06/23 05:35 Anion Gap 7 (5-15) 10/06/23 05:35 BUN 11 mg/dL (7-18) 10/06/23 05:35 Creatinine 0.71 mg/dL (0.70-1.30) 10/06/23 05:35 Est GFR (MDRD) Af Amer 146 mL/min (>60) 10/06/23 05:35 Est GFR (MDRD) Non-Af 121 mL/min (>60) 10/06/23 05:35 BUN/Creatinine Ratio 15.4 RATIO (10-20) 10/06/23 05:35 Glucose 106 mg/dL (74-106) 10/06/23 05:35 Vancomycin Trough 16.4 ug/mL (5.0-15.0) H 10/06/23 11:55 Microbiology Microbiology: Microbiology 10/04/23 20:05 Wound - Buttock Gram Stain - Final 10/04/23 20:05 Wound - Buttock Wound Culture - Preliminary Beta streptococcus Staphylococcus species Gram positive berta GNR lactose ladies underwear operator Gram negative berta 10/04/23 20:55 Urine Catheter - Catheter Urine Culture - Preliminary Escherichia coli 10/04/23 19:50 Nasal Secretion SARS-CoV-2 & FLU Antigen (Rapid) - Final Goal Trough Goal Trough: 15-20 mcg/mL Pharmacy Plan for Drug Dosing Pharmacy Plan for Drug Dosing: VANCOMYCIN LEVEL RECEIVED Current Vancomycin Dose: 1500mg IV Q12hr Number of Doses Received: 3 (2 scheduled, 1 initial) Vancomycin Level: 16.4 Hours Since Last Dose: 12.5hr Renal Function: 0.71 Renal Function Trend: stable Lab/Micro: Wcx growing staph spp, multiple other organisms Vancomycin Plan/Comments: Patient had a trough drawn which resulted in a value of 16.4 (goal 15-20). Trough was drawn ~90min late, but likely patient is still within the therapeutic goal of 15-20. Will continue current dose of vancomycin 1500mg IV Q12hr and recheck a trough in 2 days Pending Level: 10/08/23 @1030 Pharmacy Service will continue to monitor and adjust dosing as required.
[2023-10-06 13:32] LABS: Pathologist Review Reviewed
[2023-10-06] MEDS: Vancomycin HCl 1,500 MG in 0.9% Normal Saline (500mL Bag) 500 ML 250 MG IV ×2 (13:36→23:52)
[2023-10-06] MEDS: 0.9% Saline Lock 10 ML Syringe IV (13:37)
[2023-10-06 13:41] LABS: Pathologist Review Reviewed
[2023-10-06] MEDS: Vancomycin Trough/Random Due 1 LAB MC ×2 (13:44)
[2023-10-06 14:15] VITALS: BP 105/67; PULSE 102; RESP 18; TEMP 36.6; O2SAT 100
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
--- NOTE | 2023-10-06 15:38 | WOUNDNOTE ---
wound photo: sacrum
[2023-10-06] MEDS: Gabapentin 400 MG Capsule PO (21:52)
[2023-10-06 21:55] VITALS: BP 110/74; PULSE 105; RESP 15; TEMP 37.6; O2SAT 95
[2023-10-06 23:55] VITALS: TEMP 36.9
[2023-10-07] MEDS: 0.9% Normal Saline (500mL Bag) 500 ML 999 ML IV (00:39)
[2023-10-07 00:49] VITALS: BP 91/64; PULSE 123; RESP 16; TEMP 36.8; O2SAT 96
[2023-10-07 05:00] VITALS: BP 93/69; PULSE 100; RESP 17; TEMP 36.7; O2SAT 94
[2023-10-07] MEDS: cycloBENZAPRine HCl 10 MG Tablet PO ×3 (05:14→21:52)
[2023-10-07] MEDS: Piperacil/Tazobactam 3.375 GM in 0.9% Normal Saline (50mL MB+) 50 ML IV (05:15)
[2023-10-07] MEDS: Nystatin Powder 15gm Bottle 1 APPLIC TOPICAL ×3 (05:15→21:52)
[2023-10-07 07:40] LABS: Absolute Lymphocyte Count 3.41 X10^3/uL (0.83-4.51); Absolute Neutrophil Count 13.5 X10^3/uL (2.0-7.7); Basophil# 0.07 X10^3/uL; Basophil% 0.4 % (0-1); Eosinophil# 0.43 X10^3/uL; Eosinophils% 2.2 % (0-5); Hematocrit 27.6 % (40-54); Hemoglobin 8.3 g/dL (13.0-16.5); Lymphocyte # 3.41 X10^3/ul (0.83-4.51); Lymphocyte % 17.7 % (19-41); Mean Corp Hgb Conc 30.1 g/dL (32-36); Mean Corpuscular Hgb 25.4 pg (27.0-32.0); Mean Corpuscular Volume 84.4 fL (80-94); Monocyte% 8.3 % (0-10); NRBC Flagged by Analyzer 0.2 % (0-5); Neutrophil # 13.54 X10^3/uL (2.7-7.7); Neutrophil % 70.1 % (47-70); POSITIVE COUNT YES; POSITIVE DIFFERENTIAL YES; POSITIVE MORPHOLOGY YES; Platelet Count 787 K/mm3 (150-450); RBC Distribution Width CV 21.7 % (11.6-14.6); Red Blood Count 3.27 M/mm3 (4.6-6.2); White Blood Count 19.3 K/mm3 (4.4-11.0)
[2023-10-07 07:43] LABS: Differential Indicated SCAN CRITERIA MET
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
[2023-10-07 08:13] LABS: Anion Gap 4 (5-15); BUN 12 mg/dL (7-18); BUN/Creat Ratio 22.9 RATIO (10-20); Calcium,Total 8.5 mg/dL (8.5-10.1); Chloride 110 mmol/L (98-107); Creatinine, Serum 0.52 mg/dL (0.70-1.30); EST Glomerular Filtration Rate 172 mL/min (>60); Est Glom Filt Rate - Afr Amer 209 mL/min (>60); Glucose 88 mg/dL (74-106); Potassium 3.4 mmol/L (3.5-5.1); Sodium Level 137 mmol/L (136-145)
[2023-10-07 08:21] LABS: Crenated RBC 1+; Target Cells RARE
[2023-10-07 08:22] LABS: Anisocytosis 2+; Bite Cell 1+; Platelet Estimate MKD INC (ADEQ); Platelet Morphology LARGE; Schistocytes 1+
[2023-10-07 08:23] LABS: Hypochromasia 1+
[2023-10-07] MEDS: Meropenem 1 GM in 0.9% Normal Saline (100mL MB+) 100 ML IV ×3 (08:47→22:01)
[2023-10-07] MEDS: Menthol/Lanolin/Calamine/Znox 113 GM Tube 1 APPLIC TOPICAL ×4 (08:49→21:51)
[2023-10-07] MEDS: APIXABAN 5 MG TABLET PO ×2 (08:50→21:51)
[2023-10-07] MEDS: Ensure Plus High Protein 120 ML LIQUID PO ×3 (08:52→18:32)
[2023-10-07 10:17] VITALS: BP 91/64; PULSE 107; RESP 16; TEMP 36.5; O2SAT 98
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
[2023-10-07] MEDS: Vancomycin HCl 1,500 MG in 0.9% Normal Saline (500mL Bag) 500 ML 250 MG IV ×2 (11:25→22:19)
[2023-10-07 13:33] LABS: Pathologist Review Reviewed
--- NOTE | 2023-10-07 13:51 | CASEMGMT ---
Per nursing admission questions patient does not have a Healthcare Power of Wire Inspector or Healthcare Living Will and patient is not interested in documents. Aparna BANKS
[2023-10-07 14:01] LABS: Pathologist Review Reviewed
--- NOTE | 2023-10-07 14:40 | PRO.PCM_ITS ---
Procedure Report Date of Procedure: 10/07/23 Assessment & Plan Assessment/Plan (1) UTI (urinary tract infection): (2) Sacral decubitus ulcer, stage IV: Procedures Radiology Radiology Access Procedures: PICC PICC Line Consent Consent obtained:: Yes Consent given by (patient or responsible constitution party):: patient Line successful (if no, document why in comments):: Yes Insertion Reason for Insertion: Pre Billing Specialist Medication Date of Insertion: 10/07/23 Ok to use: Yes Type of PICC inserted: Single Power PICC PICC Lot #: [id number] PICC Reference #: [id number] Microintroducer Used: Yes (in kit) Ultrasound/Equipment Used: Probe Cover Kit Trimmed Length (cm): 46 Insertion Length (cm): 46 Exposed Length (cm): 0 Tip Placement: Caval Atrial Junction Placement Confirmation: 3CG Insertion Vein: Left Basilic Insertion Attempts: 1 Local Anesthesia Used: Lidocaine 1% (in kit) Dressing Applied: Statlock and Tegaderm CHG Arm Measurement above site (in cm): 26 Patient Tolerated Procedure: Well Threading Difficulties: No Comments Comment: Patient tolerated well. Charge nurse and primary nurse aware ready to use.
--- NOTE | 2023-10-07 14:53 | CASEMGMT ---
JANNETTE LION received message from patient's brother. JANNETTE LION called brother, Chace, , and he is wanting patient to go to [facility] at discharge. JANNETTE LION explained to Chace that ARIADNE has been working with patient's sister and mother regarding cancelling [facility] in [place] and applying for [facility]. Brother had no further questions or concerns at this time. JANNETTE LION updated ARIADNE.
--- NOTE | 2023-10-07 15:13 | CASEMGMT ---
ARIADNE called Sushma, corporate case mgr with [employer] (who owns [facility] [employer]) and explained patient's situation with [place] Medicaid and just moving back to [place]. ARIADNE explained that patient's brother was asking if patient could go to [facility] at this is close to him. Sushma said she would talk to their Medicaid specialist and see what she says and get back to . (ARIADNE did not give Sushma patient's name) Per RN CM patient's brother Chace said he was talking to Aparna at [facility]. ARIADNE called Aparna at [facility] and left her a voice mail requesting a return call. Aparna BANKS
[2023-10-07 15:55] VITALS: BP 111/72; PULSE 103; RESP 16; TEMP 36.6; O2SAT 97
[2023-10-07] MEDS: Calcium Carbonate 500 MG Tablet PO (15:57)
--- NOTE | 2023-10-07 16:05 | CASEMGMT ---
ARIADNE received a call from Aparna with [facility]. Aparna said she does not think patient has to cancel his [place] Medicaid before applying for [place] Medicaid. Aparna asked if [facility] could complete the [place] Medicaid application with patient and send a referral. ARIADNE let Aparna know SW will confirm with patient that he is in agreement with this plan and if so send a referral. ARIADNE asked Tanika d/c strategic planning analyst to send a referral to [facility]. Aparna BANKS
--- NOTE | 2023-10-07 16:31 | CASEMGMT ---
Addendum entered by Tanika Burris 10/07/23 16:55: Discharge Planning Patient has been accepted by [facility]. SW updated. Tanika Burris, Discharge Planning Asst. Original Note: Discharge Planning Referral sent to [facility] via [facility]. Tanika Burris, Discharge Planning Asst.
[2023-10-07 21:46] VITALS: BP 118/75; PULSE 87; RESP 16; TEMP 36.8; O2SAT 97
[2023-10-07] MEDS: Gabapentin 400 MG Capsule PO (21:58)
[2023-10-08 03:45] VITALS: BP 105/75; PULSE 111; RESP 18; TEMP 36.8; O2SAT 93
[2023-10-08 06:25] VITALS: BP 120/81; PULSE 99; RESP 18; TEMP 36.6; O2SAT 92
[2023-10-08] MEDS: Nystatin Powder 15gm Bottle 1 APPLIC TOPICAL ×3 (06:30→22:01)
[2023-10-08] MEDS: cycloBENZAPRine HCl 10 MG Tablet PO ×3 (06:31→22:04)
[2023-10-08] MEDS: Meropenem 1 GM in 0.9% Normal Saline (100mL MB+) 100 ML IV ×3 (06:48→21:58)
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
[2023-10-08 08:45] LABS: Absolute Lymphocyte Count 2.31 X10^3/uL (0.83-4.51); Absolute Neutrophil Count 12.3 X10^3/uL (2.0-7.7); Basophil# 0.11 X10^3/uL; Basophil% 0.7 % (0-1); Eosinophil# 0.62 X10^3/uL; Eosinophils% 3.7 % (0-5); Hematocrit 28.8 % (40-54); Hemoglobin 8.6 g/dL (13.0-16.5); Lymphocyte # 2.31 X10^3/ul (0.83-4.51); Lymphocyte % 13.7 % (19-41); Mean Corp Hgb Conc 29.9 g/dL (32-36); Mean Corpuscular Hgb 24.8 pg (27.0-32.0); Mean Platelet Vol. 9.9 fl (6.2-12.0); Monocyte# 1.34 X10^3/uL; Monocyte% 7.9 % (0-10); NRBC Flagged by Analyzer 0.1 % (0-5); Neutrophil # 12.32 X10^3/uL (2.7-7.7); Neutrophil % 72.8 % (47-70); POSITIVE COUNT YES; POSITIVE MORPHOLOGY YES; RBC Distribution Width CV 21.7 % (11.6-14.6); RBC Distribution Width SD 63.7 fl (35.1-43.9); Red Blood Count 3.47 M/mm3 (4.6-6.2); White Blood Count 16.9 K/mm3 (4.4-11.0)
[2023-10-08 08:49] LABS: Differential Indicated SCAN CRITERIA MET; Platelet Count 1073 K/mm3 (150-450)
[2023-10-08 09:24] LABS: Anion Gap 7 (5-15); BUN 8 mg/dL (7-18); BUN/Creat Ratio 14.5 RATIO (10-20); Calcium,Total 8.7 mg/dL (8.5-10.1); Chloride 110 mmol/L (98-107); Creatinine, Serum 0.55 mg/dL (0.70-1.30); EST Glomerular Filtration Rate 162 mL/min (>60); Est Glom Filt Rate - Afr Amer 196 mL/min (>60); Estimated Creatinine Clearance 162.52 ml/min; Glucose 84 mg/dL (74-106); Potassium 3.5 mmol/L (3.5-5.1); Sodium Level 138 mmol/L (136-145)
[2023-10-08] MEDS: Ensure Plus High Protein 120 ML LIQUID PO ×3 (09:26→17:57)
[2023-10-08] MEDS: Menthol/Lanolin/Calamine/Znox 113 GM Tube 1 APPLIC TOPICAL ×4 (09:26→22:03)
[2023-10-08] MEDS: APIXABAN 5 MG TABLET PO ×2 (09:27→22:07)
[2023-10-08 09:34] VITALS: BP 128/81; PULSE 94; RESP 16; TEMP 36.8; O2SAT 98
[2023-10-08 10:11] LABS: Anisocytosis 2+; Platelet Estimate MKD INC (ADEQ)
--- NOTE | 2023-10-08 10:15 | CASEMGMT ---
ARIADNE assisted patient in completing a Medicaid application and authorized rep forms. Patient's sister Syeda will be patient's authorized rep and will need to sign the form as well. Once form is signed by Syeda ARIADNE will send documents to [employer]. Aparna BANKS
[2023-10-08 10:57] LABS: Vancomycin, Trough Level 21.4 ug/mL (5.0-15.0)
--- NOTE | 2023-10-08 11:07 | PCM.RX.CS ---
Consult Antibiotic Management Pharmacy has been consulted to manage selected antiobiotic: Vancomycin Type of Intervention Type of Consult: Follow-up Suspected Infection Suspected Infection: Sepsis Prior Doses of Antibiotics Prior Doses of Antibiotics Received/Current Regimen: Vancomycin 1500 mg Q12H given 10/05 @ 1222, 10/05 @ 2314, 10/06 @ 1336, 10/06 @ 2352, 10/07 @ 1125, and 10/07 @ 2219 Labs Labs: Sodium 138 mmol/L (136-145) 10/08/23 07:45 Potassium 3.5 mmol/L (3.5-5.1) 10/08/23 07:45 Chloride 110 mmol/L (98-107) H 10/08/23 07:45 Carbon Dioxide 21.0 mmol/L (21.0-32.0) 10/08/23 07:45 Anion Gap 7 (5-15) 10/08/23 07:45 BUN 8 mg/dL (7-18) 10/08/23 07:45 Creatinine 0.55 mg/dL (0.70-1.30) L 10/08/23 07:45 Est GFR (MDRD) Af Amer 196 mL/min (>60) 10/08/23 07:45 Est GFR (MDRD) Non-Af 162 mL/min (>60) 10/08/23 07:45 BUN/Creatinine Ratio 14.5 RATIO (10-20) 10/08/23 07:45 Glucose 84 mg/dL (74-106) 10/08/23 07:45 Vancomycin Trough 21.4 ug/mL (5.0-15.0) H 10/08/23 10:26 Microbiology Microbiology: Microbiology 10/04/23 20:05 Wound - Buttock Gram Stain - Final 10/04/23 20:05 Wound - Buttock Wound Culture - Preliminary Streptococcus agalactiae (B) Meth. resistant Staph. aureus Corynebacterium striatum Proteus mirabilis ESBL Escherichia coli 10/04/23 20:05 Wound - Buttock Anaerobic Culture - Preliminary Checking for anaerobes, further studies to follow. 10/04/23 20:03 Blood Culture (Wb) - Right Hand Blood Culture - Preliminary No growth in 48 hours. 10/04/23 19:40 Blood Culture (Wb) - Anticubital Left Blood Culture - Preliminary No growth in 48 hours. 10/04/23 20:55 Urine Catheter - Catheter Urine Culture - Final ESBL Escherichia coli 10/04/23 19:50 Nasal Secretion SARS-CoV-2 & FLU Antigen (Rapid) - Final Dosing Weight Weight used for dosin.5 kg Estimated Creatinine Clearance Estimated Creatinine Clearance: >100 Goal Trough Goal Trough: 15-20 mcg/mL Pharmacy Plan for Drug Dosing Pharmacy Plan for Drug Dosin hour vancomycin trough = 21.4. Will hold vancomycin, random in 12 hours and dose accordingly. Pharmacy Service will continue to monitor and adjust dosing as required. Follow-Up Labs Follow-Up Labs: Trough: Vancomycin Date/Time Labs Ordered Labs to be done on [date and time ordered]: 10/08/23 @ 5166
--- NOTE | 2023-10-08 13:56 | CASEMGMT ---
Per RN CM patient's sister Syeda would like patient to go to [facility]. Tanika field/price gift shop assistant called Sarah the liaison at [facility] and they do not take patient's with stage IV wounds. Patient has a stage IV wound. ARIADNE called Syeda and she was already aware that [facility] will not take stage IV wounds. She was fine with [facility]. ARIADNE explained [facility] said they will not have a bed until Friday and patient is ready for discharge. ARIADNE mentioned [facility] is a sister facility to [facility] and maybe patient could go there for a few days and then transition to [facility] on Friday. Syeda was in agreement with this. ARIADNE told Syeda RON will check on this as a possibility. ARIADNE also mentioned to Syeda that ARIADNE needs her signature on the authorized rep form for Medicaid and then ARIADNE will get the application sent in. Syeda said she will be here shortly after 3p. Aparna Lopez BLOCKER AND SEWER DARREN
[2023-10-08 15:23] VITALS: BP 94/69; PULSE 98; RESP 16; TEMP 37; O2SAT 94
--- NOTE | 2023-10-08 15:25 | CASEMGMT ---
Syeda came in and signed the Authorized Rep form. ARIADNE faxed Medicaid melvina and Authorized rep forms to [facility]. ARIADNE also notified [facility] that patient will be ready before Friday the . Aparna at [facility] said she will see what she can do. ARIADNE does have to obtain a pending Medicaid number and get a level of care in order to be able to send patient to [facility]. Plan: Await pending Medicaid number. Patient will be going to [facility] Aparna Lopez MSW DARREN
--- NOTE | 2023-10-08 18:42 | NURSING ---
Reviewed charting with Dorothy Lilly RN
[2023-10-08] MEDS: Acetaminophen 325 MG Tablet 650 MG PO (19:51)
[2023-10-08 20:24] VITALS: BP 126/78; PULSE 85; RESP 18; TEMP 37.3; O2SAT 96
[2023-10-08 21:56] VITALS: BP 119/78; PULSE 88; RESP 18; TEMP 36.5; O2SAT 96
[2023-10-08] MEDS: 0.9% Saline Lock 10 ML Syringe IV (21:58)
[2023-10-08] MEDS: Gabapentin 400 MG Capsule PO (22:00)
[2023-10-08 23:50] LABS: Vancomycin, Random Level 9.6 ug/mL (0.0-15.0)
--- NOTE | 2023-10-08 23:59 | PCM.RX.CS ---
Consult Antibiotic Management Pharmacy has been consulted to manage selected antiobiotic: Vancomycin Type of Intervention Type of Consult: Follow-up Suspected Infection Suspected Infection: Sepsis Labs Labs: Sodium 138 mmol/L (136-145) 10/08/23 07:45 Potassium 3.5 mmol/L (3.5-5.1) 10/08/23 07:45 Chloride 110 mmol/L (98-107) H 10/08/23 07:45 Carbon Dioxide 21.0 mmol/L (21.0-32.0) 10/08/23 07:45 Anion Gap 7 (5-15) 10/08/23 07:45 BUN 8 mg/dL (7-18) 10/08/23 07:45 Creatinine 0.55 mg/dL (0.70-1.30) L 10/08/23 07:45 Est GFR (MDRD) Af Amer 196 mL/min (>60) 10/08/23 07:45 Est GFR (MDRD) Non-Af 162 mL/min (>60) 10/08/23 07:45 BUN/Creatinine Ratio 14.5 RATIO (10-20) 10/08/23 07:45 Glucose 84 mg/dL (74-106) 10/08/23 07:45 Vancomycin Trough 21.4 ug/mL (5.0-15.0) H 10/08/23 10:26 Random Vancomycin 9.6 ug/mL (0.0-15.0) 10/08/23 23:00 Microbiology Microbiology: Microbiology 10/04/23 20:05 Wound - Buttock Gram Stain - Final 10/04/23 20:05 Wound - Buttock Wound Culture - Preliminary Streptococcus agalactiae (B) Meth. resistant Staph. aureus Corynebacterium striatum Proteus mirabilis ESBL Escherichia coli 10/04/23 20:05 Wound - Buttock Anaerobic Culture - Preliminary Checking for anaerobes, further studies to follow. 10/04/23 20:03 Blood Culture (Wb) - Right Hand Blood Culture - Preliminary No growth in 48 hours. 10/04/23 19:40 Blood Culture (Wb) - Anticubital Left Blood Culture - Preliminary No growth in 48 hours. 10/04/23 20:55 Urine Catheter - Catheter Urine Culture - Final ESBL Escherichia coli 10/04/23 19:50 Nasal Secretion SARS-CoV-2 & FLU Antigen (Rapid) - Final Dosing Weight Weight used for dosin.5 kg Estimated Creatinine Clearance Estimated Creatinine Clearance: 162 Goal Trough Goal Trough: 15-20 mcg/mL Pharmacy Plan for Drug Dosing Pharmacy Plan for Drug Dosing: Random vancomycin level, drawn 24.7 hours after last dose given, was 9.6. With the level now below 20 we will re-institute dosing. Per dosing calculator, a new dose of 1000mg q12h should give an estimated trough of 15.1. A level will be drawn prior to the 4th dose of the new regimen. Pharmacy Service will continue to monitor and adjust dosing as required. Follow-Up Labs Follow-Up Labs: Trough: Vancomycin Date/Time Labs Ordered Labs to be done on [date and time ordered]: 10/10/23 @8477
[2023-10-09] MEDS: Vancomycin IV 1,000 MG/200 ML BAG 200 MG IV ×3 (00:01→23:43)
[2023-10-09 04:03] VITALS: BP 141/85; PULSE 89; RESP 18; TEMP 36.8; O2SAT 94
[2023-10-09] MEDS: cycloBENZAPRine HCl 10 MG Tablet PO ×3 (05:57→22:29)
[2023-10-09] MEDS: Meropenem 1 GM in 0.9% Normal Saline (100mL MB+) 100 ML IV ×3 (05:57→22:46)
[2023-10-09] MEDS: Nystatin Powder 15gm Bottle 1 APPLIC TOPICAL ×3 (05:59→22:36)
[2023-10-09] MEDS: 0.9% Saline Lock 10 ML Syringe IV (05:59)
[2023-10-09 06:08] LABS: Absolute Neutrophil Count 12.8 X10^3/uL (2.0-7.7); Basophil# 0.13 X10^3/uL; Basophil% 0.7 % (0-1); Eosinophil# 0.86 X10^3/uL; Eosinophils% 4.6 % (0-5); Hematocrit 29.5 % (40-54); Hemoglobin 8.8 g/dL (13.0-16.5); Lymphocyte % 16.1 % (19-41); Mean Corp Hgb Conc 29.8 g/dL (32-36); Mean Corpuscular Hgb 24.4 pg (27.0-32.0); Mean Corpuscular Volume 81.9 fL (80-94); Mean Platelet Vol. 9.7 fl (6.2-12.0); NRBC Flagged by Analyzer 0.1 % (0-5); Neutrophil % 68.5 % (47-70); POSITIVE COUNT YES; POSITIVE MORPHOLOGY YES; RBC Distribution Width CV 21.6 % (11.6-14.6); RBC Distribution Width SD 62.4 fl (35.1-43.9); White Blood Count 18.7 K/mm3 (4.4-11.0)
[2023-10-09 06:20] LABS: Differential Indicated SCAN CRITERIA MET; Platelet Count 1089 K/mm3 (150-450)
[2023-10-09 06:37] LABS: Anion Gap 7 (5-15); BUN 9 mg/dL (7-18); BUN/Creat Ratio 18.6 RATIO (10-20); Calcium,Total 8.7 mg/dL (8.5-10.1); Chloride 106 mmol/L (98-107); Creatinine, Serum 0.48 mg/dL (0.70-1.30); EST Glomerular Filtration Rate 189 mL/min (>60); Est Glom Filt Rate - Afr Amer 229 mL/min (>60); Estimated Creatinine Clearance 186.22 ml/min; Glucose 83 mg/dL (74-106); Potassium 3.7 mmol/L (3.5-5.1); Sodium Level 138 mmol/L (136-145)
[2023-10-09 07:10] LABS: Differential Comment SCANNED; Platelet Estimate MKD INC (ADEQ)
--- NOTE | 2023-10-09 08:50 | CASEMGMT ---
SW spoke with patient and asked if he would be okay with SW checking with various Acute Rehab facilities to see if they would be willing to take patient. SW explained that patient would really benefit from going to an Acute Rehab unit as he would get more therapy and he is very motivated to walk and get back to work. Patient was agreeable to SW contacting any Acute Rehab Units. SW asked [facility] d/c special event assistant to please check with [facility], [facility], and [facility] to see if they take pending Medicaid and if so send referrals. Aparna Lopez ELECTRICAL INSTALLATION SUPERVISOR LIS
--- NOTE | 2023-10-09 09:00 | CASEMGMT ---
Discharge Planning Referral sent to [facility] via [facility]. Tanika Burris, Discharge Planning Asst.
--- NOTE | 2023-10-09 09:30 | CASEMGMT ---
Discharge Planning Referral sent via [facility] to [facility]. Tanika Burris, Discharge Planning Asst.
[2023-10-09 10:35] VITALS: BP 123/80; PULSE 101; RESP 16; TEMP 36.8; O2SAT 94
[2023-10-09] MEDS: APIXABAN 5 MG TABLET PO ×2 (10:39→22:29)
[2023-10-09] MEDS: Acetaminophen 325 MG Tablet 650 MG PO ×3 (10:43→22:28)
[2023-10-09] MEDS: Ensure Plus High Protein 120 ML LIQUID PO ×3 (10:43→17:45)
[2023-10-09] MEDS: 0.9% Normal Saline (250mL Bag) 250 ML 15 ML IV (10:51)
[2023-10-09] MEDS: Menthol/Lanolin/Calamine/Znox 113 GM Tube 1 APPLIC TOPICAL ×4 (11:53→22:29)
--- NOTE | 2023-10-09 11:56 | PN.HOSP_ITS ---
Reason for Visit Reason for Visit: Diagnoses Sepsis, unspecified organism (10/04/23) Pressure ulcer of sacral region, stage 4 (10/04/23) Urinary tract infection, site not specified (10/04/23) Subjective Subjective Patient seen had a relatively uneventful night. [facility] Objective Data Objective Data Vital Signs: Vital Signs Temp Pulse Resp BP Pulse Ox O2 Del Method 98.2 F 101 H 16 123/80 H 94 Room Air 10/09/23 10:35 10/09/23 10:35 10/09/23 10:35 10/09/23 10:35 10/09/23 10:35 10/09/23 10:35 Oxygen Delivery Method Room Air Weight: 77.54 kg Body Mass Index (BMI) 21.3 Intake & Output: Intake and Output for Last 24 Hours 10/07/23 10/08/23 10/09/23 23:59 23:59 23:59 Intake Total 3534.17 / 3534.17 1984 / 1984 440 / 440 Output Total 2600 / 2600 1600 / 1600 600 / 600 Balance 934.17 / 934.17 385 / 385 -160 / -160 Lab / Micro Data 10/09/23 05:40 10/09/23 05:40 Labs: Laboratory Results - last 24 hr 10/08/23 23:00: Random Vancomycin 9.6 10/09/23 05:40: WBC 18.7 H, RBC 3.60 L, Hgb 8.8 L, Hct 29.5 L, MCV 81.9, MCH 24.4 L, MCHC 29.8 L, RDW Std Deviation 62.4 H, RDW Coeff of Lauren 21.6 H, Plt Count 1089 H*, MPV 9.7, Immature Gran % (Auto) 2.100 H, Neut % (Auto) 68.5, Lymph % (Auto) 16.1 L, [place] % (Auto) 8.0, Eos % (Auto) 4.6, Baso % (Auto) 0.7, Absolute Neuts (auto) 12.8 H, Absolute Lymphs (auto) 3.00, Nucleated RBC % 0.1, Differential Comment SCANNED, Diff Path Review May , Platelet Estimate MKD INC, Sodium 138, Potassium 3.7, Chloride 106, Carbon Dioxide 25.0, Anion Gap 7, BUN 9, Creatinine 0.48 L, Estim Creat Clear Calc 186.22, Est GFR (MDRD) Af Amer 229, Est GFR (MDRD) Non-Af 189, BUN/Creatinine Ratio 18.6, Glucose 83, Calcium 8.7 Micro: Microbiology 10/04/23 20:05 Wound - Buttock Gram Stain - Final 10/04/23 20:05 Wound - Buttock Wound Culture - Final Streptococcus agalactiae (B) Meth. resistant Staph. aureus Corynebacterium striatum Proteus mirabilis ESBL Escherichia coli 10/04/23 20:05 Wound - Buttock Anaerobic Culture - Final Fusobacterium nucleatum 10/04/23 20:03 Blood Culture (Wb) - Right Hand Blood Culture - Preliminary No growth in 48 hours. 10/04/23 19:40 Blood Culture (Wb) - Anticubital Left Blood Culture - Preliminary No growth in 48 hours. 10/04/23 20:55 Urine Catheter - Catheter Urine Culture - Final ESBL Escherichia coli 10/04/23 19:50 Nasal Secretion SARS-CoV-2 & FLU Antigen (Rapid) - Final Physical Exam Narrative GENERAL: cooperative HEENT: Atraumatic; normocephalic EYES; Anicteric, Normal Conjunctiva NECK; supple, normal thyroid, RESPIRATORY: Diminished to auscultation CARDIOVASCULAR: Regular S1 S2, GI: soft, normoactive bowel sounds, : No Renal angle tenderness; EXTREMITIES: No edema, no clubbing, MUSCULOSKELETAL: Contractures involving lower extremities NEURO: Awake; no lateralizing signs. SKIN: Stage IV sacral decubitus PSYCH; Flat affect Assessment & Plan Assessment/Plan (1) Sepsis: (2) UTI (urinary tract infection): (3) Sacral decubitus ulcer, stage IV: PLAN: Plan 58-year-old male history of PE and paraplegia as well as chronic sacral decubitus presented 10/04/2023 for fever and lethargy. Was in his normal state of health and then became acutely ill and was found to have a fever and concerns for sepsis and was admitted to the hospital. 1. Sepsis ? Secondary to UTI with E. coli as well as infected decubitus. 2. Acute cystitis with ESBL E. coli ? patient remains on broad-spectrum antibiotic therapy final identification and sensitivities pending ?10/07/2023; Patient urine culture positive for ESBL. Wound cultures growing multiple organisms fight identification and sensitivities pending. Patient was on Zosyn discontinued started on meropenem. Consult placed to infectious disease Case discussed with Dr. Haney 3. Infected stage IV decubitus ulcer ? Patient cultures growing Multiple organisms including beta septic, staph species, Gram positive rods, gram-negative lactose service desk team lead. Patient remains on broad-spectrum antibiotic therapy MRI was ordered to rule out osteomyelitis c onsultation placed to ID ? 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 Mild degenerative arthrosis of the hip joints bilaterally. Mild trochanteric bursitis bilaterally. Mild marrow stress edema at the anterior- inferior iliac spines bilaterally, left greater than right, probably the sequelae of old avulsion injuries. No evidence of acute osteomyelitis. -10/08/2023; final wound cultures Wound Culture Preliminary 10/08/23 Organism 1 Streptococcus agalactiae (B) Amount Growth 1+ Organism 2 Meth. resistant Staph. aureus Amount Growth 1+ mecA Testing not performed Organism 3 Corynebacterium striatum Amount Growth 2+ Organism 4 Proteus mirabilis Amount Growth Rare Organism 5 ESBL Escherichia coli Amount Growth Very Rare MARKER ESBL producing Organism ?Deferred antibiotic therapy to ID ? 10/09/2023 patient remains on antibiotic therapy duration of therapy as recommended by ID 4.. Paraplegia following a 4 see accident ? Requested for PT OT eval and social media senior associate to assist with discharge planning 5. Myeloproliferative disorder ? Patient has leukocytosis as well as thrombocytosis patient is on anagrelide 6. History of previous pulmonary embolism ? Patient is on apixaban 7. Stage IV decubitus ulcer ? Present on admission ? Consult placed to wound care nurse for dressing changes MRI ordered to rule out osteomyelitis ? 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 Mild degenerative arthrosis of the hip joints bilaterally. Mild trochanteric bursitis bilaterally. Mild marrow stress edema at the anterior- inferior iliac spines bilaterally, left greater than right, probably the sequelae of old avulsion injuries. No evidence of acute osteomyelitis. 8. Tobacco dependence - Counseled on cessation, offered nicotine patch for tobacco cravings 9. Physical deconditioning - Requested for PT OT eval and social media senior associate to assist with discharge planning 10. DVT prophylaxis ? Patient is on apixaban Time spent in the patient's overall evaluation,decision-making process, review of diagnostic data, adjustment of management, discussion with other providers, nursing nursing and ancillary staff involved in patient's care documentation, 35 minutes Charges/Coding Visit Charges Inpatient E&M: 11300 Subs Hosp L2
[2023-10-09 14:53] VITALS: BP 118/77; PULSE 108; RESP 16; TEMP 36.5; O2SAT 94
--- NOTE | 2023-10-09 15:14 | CASEMGMT ---
[facility]. [facility]. Aparna Lopez COMBAT SYSTEMS OFFICER DARREN
--- NOTE | 2023-10-09 16:54 | CASEMGMT ---
[facility] has accepted patient. SW still has not received a pending Medicaid number from [employer]. SW will follow up with [employer] tomorrow am. SW will also talk with patient tomorrow. Aparna BANKS
[2023-10-09 22:19] VITALS: BP 149/92; PULSE 78; RESP 18; TEMP 36.9; O2SAT 98
[2023-10-09] MEDS: Gabapentin 400 MG Capsule PO (22:28)
[2023-10-10 04:27] VITALS: BP 113/72; PULSE 117; RESP 18; TEMP 36.8; O2SAT 94
[2023-10-10] MEDS: cycloBENZAPRine HCl 10 MG Tablet PO ×3 (05:36→22:29)
[2023-10-10] MEDS: Meropenem 1 GM in 0.9% Normal Saline (100mL MB+) 100 ML IV ×3 (05:36→22:31)
[2023-10-10] MEDS: Nystatin Powder 15gm Bottle 1 APPLIC TOPICAL ×3 (07:29→22:27)
[2023-10-10 08:35] VITALS: BP 129/79; PULSE 108; RESP 18; TEMP 36.7; O2SAT 94
--- NOTE | 2023-10-10 09:02 | PN.HOSP_ITS ---
Reason for Visit Reason for Visit: Diagnoses Sepsis, unspecified organism (10/04/23) Pressure ulcer of sacral region, stage 4 (10/04/23) Urinary tract infection, site not specified (10/04/23) Subjective Subjective Patient has been accepted for transfer to [facility] rehab awaiting bed availability Objective Data Objective Data Vital Signs: Vital Signs Temp Pulse Resp BP Pulse Ox O2 Del Method 98.0 F 108 H 18 129/79 H 94 Room Air 10/10/23 08:35 10/10/23 08:35 10/10/23 08:35 10/10/23 08:35 10/10/23 08:35 10/10/23 08:35 Oxygen Delivery Method Room Air Weight: 77.54 kg Body Mass Index (BMI) 21.3 Intake & Output: Intake and Output for Last 24 Hours 10/08/23 10/09/23 10/10/23 23:59 23:59 23:59 Intake Total 1984 / 1984 2148 / 2148 320 / 320 Output Total 1600 / 1600 2400 / 2400 1100 / 1100 Balance 385 / 385 -252 / -252 -780 / -780 Lab / Micro Data 10/10/23 11:35 10/09/23 05:40 Micro: Microbiology 10/04/23 19:40 Blood Culture (Wb) - Anticubital Left Blood Culture - Final No growth in 5 days. 10/04/23 20:03 Blood Culture (Wb) - Right Hand Blood Culture - Final No growth in 5 days. 10/04/23 20:05 Wound - Buttock Gram Stain - Final 10/04/23 20:05 Wound - Buttock Wound Culture - Final Streptococcus agalactiae (B) Meth. resistant Staph. aureus Corynebacterium striatum Proteus mirabilis ESBL Escherichia coli 10/04/23 20:05 Wound - Buttock Anaerobic Culture - Final Fusobacterium nucleatum 10/04/23 20:55 Urine Catheter - Catheter Urine Culture - Final ESBL Escherichia coli 10/04/23 19:50 Nasal Secretion SARS-CoV-2 & FLU Antigen (Rapid) - Final Physical Exam Narrative GENERAL: cooperative HEENT: Atraumatic; normocephalic EYES; Anicteric, Normal Conjunctiva NECK; supple, normal thyroid, RESPIRATORY: Diminished to auscultation CARDIOVASCULAR: Regular S1 S2, GI: soft, normoactive bowel sounds, : No Renal angle tenderness; EXTREMITIES: No edema, no clubbing, MUSCULOSKELETAL: Contractures involving lower extremities NEURO: Awake; no lateralizing signs. SKIN: Stage IV sacral decubitus PSYCH; Flat affect Assessment & Plan Assessment/Plan (1) Sepsis: (2) UTI (urinary tract infection): (3) Sacral decubitus ulcer, stage IV: PLAN: Plan 58-year-old male history of PE and paraplegia as well as chronic sacral decubitus presented 10/04/2023 for fever and lethargy. Was in his normal state of health and then became acutely ill and was found to have a fever and concerns for sepsis and was admitted to the hospital. 1. Sepsis ? Secondary to UTI with E. coli as well as infected decubitus. 2. Acute cystitis with ESBL E. coli ? patient remains on broad-spectrum antibiotic therapy final identification and sensitivities pending ?10/07/2023; Patient urine culture positive for ESBL. Wound cultures growing multiple organisms fight identification and sensitivities pending. Patient was on Zosyn discontinued started on meropenem. Consult placed to infectious disease Case discussed with Dr. Haney 3. Infected stage IV decubitus ulcer ? Patient cultures growing Multiple organisms including beta septic, staph species, Gram positive rods, gram-negative lactose dry folder cloth. Patient remains on broad-spectrum antibiotic therapy MRI was ordered to rule out osteomyelitis consultation placed to ID ? 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 Mild degenerative arthrosis of the hip joints bilaterally. Mild trochanteric bursitis bilaterally. Mild marrow stress edema at the anterior- inferior iliac spines bilaterally, left greater than right, probably the sequelae of old avulsion injuries. No evidence of acute osteomyelitis. -10/08/2023; final wound cultures Wound Culture Preliminary 10/08/23-832 Organism 1 Streptococcus agalactiae (B) Amount Growth 1+ Organism 2 Meth. resistant Staph. aureus Amount Growth 1+ mecA Testing not performed Organism 3 Corynebacterium striatum Amount Growth 2+ Organism 4 Proteus mirabilis Amount Growth Rare Organism 5 ESBL Escherichia coli Amount Growth Very Rare MARKER ESBL producing Organism ?Deferred antibiotic therapy to ID ? 10/09/2023 patient remains on antibiotic therapy duration of therapy as recommended by ID 4.. Paraplegia following a 4 see accident ? Requested for PT OT eval and 7th grade social studies teacher to assist with discharge planning 5. Myeloproliferative disorder ? Patient has leukocytosis as well as thrombocytosis patient is on anagrelide 6. History of previous pulmonary embolism ? Patient is on apixaban 7. Stage IV decubitus ulcer ? Present on admission ? Consult placed to wound care nurse for dressing changes MRI ordered to rule out osteomyelitis ? 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 Mild degenerative arthrosis of the hip joints bilaterally. Mild trochanteric bursitis bilaterally. Mild marrow stress edema at the anterior- inferior iliac spines bilaterally, left greater than right, probably the sequelae of old avulsion injuries. No evidence of acute osteomyelitis. 8. Tobacco dependence - Counseled on cessation, offered nicotine patch for tobacco cravings 9. Physical deconditioning - Requested for PT OT eval and 7th grade social studies teacher to assist with discharge planning ? 10/10/2023 accepted for transfer to [facility] rehab. Awaiting bed availability 10. DVT prophylaxis ? Patient is on apixaban Time spent in the patient's overall evaluation,decision-making process, review of diagnostic data, adjustment of management, discussion with other providers, nursing nursing and ancillary staff involved in patient's care documentation, 35 minutes Charges/Coding Visit Charges Inpatient E&M: 00059 Subs Hosp L2
[2023-10-10 09:09] LABS: Pathologist Review Reviewed
[2023-10-10 09:19] LABS: Pathologist Review Reviewed
[2023-10-10] MEDS: Menthol/Lanolin/Calamine/Znox 113 GM Tube 1 APPLIC TOPICAL ×4 (09:50→22:27)
[2023-10-10] MEDS: APIXABAN 5 MG TABLET PO ×2 (09:51→22:29)
[2023-10-10] MEDS: Acetaminophen 325 MG Tablet 650 MG PO ×3 (09:51→20:18)
--- NOTE | 2023-10-10 10:21 | CASEMGMT ---
SW met with patient this am and let him know [facility] accepted him. SW asked patient which facility he would prefer. Patient said he would prefer [facility] as he would get more therapy. Patient asked SW to call his sister and let her know. ARIADNE received an email from [employer] [facility] asking when patient moved back to [place]. SW called patient's sister Syeda and updated her on the latest plan. She was agreeable as well. SW let her know that patient will likely not go until Friday, but SW would let her know if something changes. ARIADNE also asked what day patient moved back to [place]. Patient moved back to [place] 10-02. SW notified [facility]. Should SW get a pending number [facility] or today. Plan: [facility]. Aparna BANKS
--- NOTE | 2023-10-10 10:59 | CASEMGMT ---
ARIADNE let [facility] know that patient will be going to [facility]. [facility] responded they have a bed for him and have been working with patient's brother on getting him there. ARIADNE let them know Patient wants to go to an Acute Rehab Unit where he will get more therapy. Aparna Lopez EARTH BURNER DARREN
[2023-10-10 12:12] LABS: Absolute Lymphocyte Count 3.76 X10^3/uL (0.83-4.51); Absolute Neutrophil Count 10.9 X10^3/uL (2.0-7.7); Basophil# 0.13 X10^3/uL; Basophil% 0.7 % (0-1); Eosinophil# 0.69 X10^3/uL; Hematocrit 31.1 % (40-54); Hemoglobin 9.5 g/dL (13.0-16.5); Lymphocyte # 3.76 X10^3/ul (0.83-4.51); Lymphocyte % 21.7 % (19-41); Mean Corp Hgb Conc 30.5 g/dL (32-36); Mean Corpuscular Hgb 24.7 pg (27.0-32.0); Mean Corpuscular Volume 80.8 fL (80-94); Mean Platelet Vol. 9.3 fl (6.2-12.0); Monocyte# 1.52 X10^3/uL; Monocyte% 8.8 % (0-10); NRBC Flagged by Analyzer 0 % (0-5); Neutrophil # 10.89 X10^3/uL (2.7-7.7); Neutrophil % 62.7 % (47-70); POSITIVE COUNT YES; POSITIVE DIFFERENTIAL YES; POSITIVE MORPHOLOGY YES; RBC Distribution Width CV 22.5 % (11.6-14.6); RBC Distribution Width SD 61.9 fl (35.1-43.9); Red Blood Count 3.85 M/mm3 (4.6-6.2); White Blood Count 17.4 K/mm3 (4.4-11.0)
[2023-10-10 12:13] LABS: Platelet Count 943 K/mm3 (150-450)
[2023-10-10 12:14] LABS: Differential Indicated SCAN CRITERIA MET
[2023-10-10 12:34] LABS: Anion Gap 6 (5-15); BUN 10 mg/dL (7-18); BUN/Creat Ratio 17.1 RATIO (10-20); Calcium,Total 8.9 mg/dL (8.5-10.1); Chloride 105 mmol/L (98-107); Creatinine, Serum 0.59 mg/dL (0.70-1.30); EST Glomerular Filtration Rate 152 mL/min (>60); Est Glom Filt Rate - Afr Amer 183 mL/min (>60); Glucose 113 mg/dL (74-106); Potassium 3.4 mmol/L (3.5-5.1); Sodium Level 136 mmol/L (136-145)
[2023-10-10 12:36] LABS: Vancomycin, Trough Level 14.1 ug/mL (5.0-15.0)
--- NOTE | 2023-10-10 13:08 | PCM.RX.CS ---
Consult Antibiotic Management Pharmacy has been consulted to manage selected antiobiotic: Vancomycin Type of Intervention Type of Consult: Follow-up Prior Doses of Antibiotics Prior Doses of Antibiotics Received/Current Regimen: current dose is vanc 1000mg IV q12h Labs Labs: Sodium 136 mmol/L (136-145) 10/10/23 11:35 Potassium 3.4 mmol/L (3.5-5.1) L 10/10/23 11:35 Chloride 105 mmol/L (98-107) 10/10/23 11:35 Carbon Dioxide 25.0 mmol/L (21.0-32.0) 10/10/23 11:35 Anion Gap 6 (5-15) 10/10/23 11:35 BUN 10 mg/dL (7-18) 10/10/23 11:35 Creatinine 0.59 mg/dL (0.70-1.30) L 10/10/23 11:35 Est GFR (MDRD) Af Amer 183 mL/min (>60) 10/10/23 11:35 Est GFR (MDRD) Non-Af 152 mL/min (>60) 10/10/23 11:35 BUN/Creatinine Ratio 17.1 RATIO (10-20) 10/10/23 11:35 Glucose 113 mg/dL (74-106) H 10/10/23 11:35 Vancomycin Trough 14.1 ug/mL (5.0-15.0) 10/10/23 11:35 Random Vancomycin 9.6 ug/mL (0.0-15.0) 10/08/23 23:00 Microbiology Microbiology: Microbiology 10/04/23 19:40 Blood Culture (Wb) - Anticubital Left Blood Culture - Final No growth in 5 days. 10/04/23 20:03 Blood Culture (Wb) - Right Hand Blood Culture - Final No growth in 5 days. 10/04/23 20:05 Wound - Buttock Gram Stain - Final 10/04/23 20:05 Wound - Buttock Wound Culture - Final Streptococcus agalactiae (B) Meth. resistant Staph. aureus Corynebacterium striatum Proteus mirabilis ESBL Escherichia coli 10/04/23 20:05 Wound - Buttock Anaerobic Culture - Final Fusobacterium nucleatum 10/04/23 20:55 Urine Catheter - Catheter Urine Culture - Final ESBL Escherichia coli 10/04/23 19:50 Nasal Secretion SARS-CoV-2 & FLU Antigen (Rapid) - Final Dosing Weight Weight used for dosin.5 kg Estimated Creatinine Clearance Estimated Creatinine Clearance: >100ml/min Goal Trough Goal Trough: 15-20 mcg/mL Pharmacy Plan for Drug Dosing Pharmacy Plan for Drug Dosing: The vanc trough drawn at 11:35 today (approx 11.5 hours after the previous dose) was 14.1. It is just short of goal range but will leave dose as is for now. It is expected that it will rise into the goal range soon. Hesitant to increase it right now since the previous dose of 1500mg q12h resulted in a high trough. Will repeat a trough in 2 days. Pharmacy Service will continue to monitor and adjust dosing as required. Follow-Up Labs Follow-Up Labs: Trough: Vancomycin Date/Time Labs Ordered Labs to be done on [date and time ordered]: 10/12/23 11:30
[2023-10-10 13:15] LABS: Differential Comment SCANNED; Platelet Estimate MKD INC (ADEQ)
[2023-10-10] MEDS: Vancomycin IV 1,000 MG/200 ML BAG 200 MG IV (13:24)
--- NOTE | 2023-10-10 14:56 | PCM.PN.ID ---
ID ID: Route of nutrition/ use of supplements: [] Nutritional Intake: [] IV Site: [] Kothari Catheter: [] Patient alert overall clinically stable. Currently on vancomycin plus meropenem. No fevers. Vital signs reviewed overall clinically stable. Sacral wound does not look infected abdomen soft nontender. Assessment & Plan Assessment/Plan (1) UTI (urinary tract infection): PLAN: Currently day #3 of antimicrobial therapy for the complicated urinary tract infection with E. coli. Will continue for total 10 days of either meropenem or ertapenem. Will discontinue vancomycin given the low suspicion of active infection of the sacral area.
[2023-10-10 15:27] VITALS: BP 121/79; PULSE 104; RESP 16; TEMP 36.1; O2SAT 96
[2023-10-10 22:20] VITALS: BP 113/84; PULSE 95; RESP 16; TEMP 36.7; O2SAT 96
[2023-10-10] MEDS: Gabapentin 400 MG Capsule PO (22:28)
[2023-10-11 04:04] VITALS: BP 124/89; PULSE 123; RESP 16; TEMP 37.3; O2SAT 93
[2023-10-11] MEDS: Meropenem 1 GM in 0.9% Normal Saline (100mL MB+) 100 ML IV ×3 (05:35→21:26)
[2023-10-11] MEDS: cycloBENZAPRine HCl 10 MG Tablet PO ×3 (05:36→21:16)
[2023-10-11] MEDS: Nystatin Powder 15gm Bottle 1 APPLIC TOPICAL ×3 (05:36→21:16)
[2023-10-11 07:50] LABS: Absolute Lymphocyte Count 3.97 X10^3/uL (0.83-4.51); Absolute Neutrophil Count 11.8 X10^3/uL (2.0-7.7); Basophil# 0.11 X10^3/uL; Basophil% 0.6 % (0-1); Eosinophil# 0.78 X10^3/uL; Eosinophils% 4.2 % (0-5); Hematocrit 33.2 % (40-54); Hemoglobin 10.7 g/dL (13.0-16.5); Lymphocyte # 3.97 X10^3/ul (0.83-4.51); Lymphocyte % 21.4 % (19-41); Mean Corp Hgb Conc 32.2 g/dL (32-36); Mean Corpuscular Hgb 26.6 pg (27.0-32.0); Mean Corpuscular Volume 82.6 fL (80-94); Mean Platelet Vol. 9.3 fl (6.2-12.0); Monocyte# 1.48 X10^3/uL; NRBC Flagged by Analyzer 0.2 % (0-5); Neutrophil # 11.82 X10^3/uL (2.7-7.7); Neutrophil % 63.6 % (47-70); POSITIVE COUNT YES; POSITIVE MORPHOLOGY YES; Platelet Count 858 K/mm3 (150-450); RBC Distribution Width CV 22.4 % (11.6-14.6); RBC Distribution Width SD 64.6 fl (35.1-43.9); Red Blood Count 4.02 M/mm3 (4.6-6.2); White Blood Count 18.6 K/mm3 (4.4-11.0)
[2023-10-11 07:53] LABS: Differential Indicated SCAN CRITERIA MET
--- NOTE | 2023-10-11 08:27 | PN.HOSP_ITS ---
Reason for Visit Reason for Visit: Diagnoses Sepsis, unspecified organism (10/04/23) Pressure ulcer of sacral region, stage 4 (10/04/23) Urinary tract infection, site not specified (10/04/23) Subjective Subjective Patient seen appears to be back to his baseline awaiting transfer to detention facility. WBC count still remains elevated Objective Data Objective Data Vital Signs: Vital Signs Temp Pulse Resp BP Pulse Ox O2 Del Method 99.2 F H 123 H 16 124/89 H 93 Room Air 10/11/23 04:04 10/11/23 04:04 10/11/23 04:04 10/11/23 04:04 10/11/23 04:04 10/11/23 04:04 Oxygen Delivery Method Room Air Weight: 77.54 kg Body Mass Index (BMI) 21.3 Intake & Output: Intake and Output for Last 24 Hours 10/09/23 10/10/23 10/11/23 23:59 23:59 23:59 Intake Total 2148 / 2148 2700 / 2700 240 / 240 Output Total 2400 / 2400 2900 / 2900 1100 / 1100 Balance -252 / -252 -200 / -200 -860 / -860 Lab / Micro Data 10/11/23 06:50 10/11/23 06:50 Labs: Laboratory Results - last 24 hr 10/08/23 07:45: Diff Path Review Reviewed 10/09/23 05:40: Diff Path Review Reviewed 10/10/23 11:35: WBC 17.4 H, RBC 3.85 L, Hgb 9.5 L, Hct 31.1 L, MCV 80.8, MCH 24.7 L, MCHC 30.5 L, RDW Std Deviation 61.9 H, RDW Coeff of Lauren 22.5 H, Plt Count 943 H*, MPV 9.3, Immature Gran % (Auto) 2.100 H, Neut % (Auto) 62.7, Lymph % (Auto) 21.7, [place] % (Auto) 8.8, Eos % (Auto) 4.0, Baso % (Auto) 0.7, Absolute Neuts (auto) 10.9 H, Absolute Lymphs (auto) 3.76, Nucleated RBC % 0, Differential Comment SCANNED, Diff Path Review May foll, Platelet Estimate MKD INC, Sodium 136, Potassium 3.4 L, Chloride 105, Carbon Dioxide 25.0, Anion Gap 6, BUN 10, Creatinine 0.59 L, Estim Creat Clear Calc 151.50, Est GFR (MDRD) Af Amer 183, Est GFR (MDRD) Non-Af 152, BUN/Creatinine Ratio 17.1, Glucose 113 H, Calcium 8.9, Vancomycin Trough 14.1 10/11/23 06:50: WBC 18.6 H, RBC 4.02 L, Hgb 10.7 L, Hct 33.2 L, MCV 82.6, MCH 26.6 L, MCHC 32.2 D, RDW Std Deviation 64.6 H, RDW Coeff of Lauren 22.4 H, Plt Count 858 H*, MPV 9.3, Immature Gran % (Auto) 2.200 H, Neut % (Auto) 63.6, Lymph % (Auto) 21.4, [place] % (Auto) 8.0, Eos % (Auto) 4.2, Baso % (Auto) 0.6, Absolute Neuts (auto) 11.8 H, Absolute Lymphs (auto) 3.97, Nucleated RBC % 0.2 Micro: Microbiology 10/04/23 19:40 Blood Culture (Wb) - Anticubital Left Blood Culture - Final No growth in 5 days. 10/04/23 20:03 Blood Culture (Wb) - Right Hand Blood Culture - Final No growth in 5 days. 10/04/23 20:05 Wound - Buttock Gram Stain - Final 10/04/23 20:05 Wound - Buttock Wound Culture - Final Streptococcus agalactiae (B) Meth. resistant Staph. aureus Corynebacterium striatum Proteus mirabilis ESBL Escherichia coli 10/04/23 20:05 Wound - Buttock Anaerobic Culture - Final Fusobacterium nucleatum 10/04/23 20:55 Urine Catheter - Catheter Urine Culture - Final ESBL Escherichia coli 10/04/23 19:50 Nasal Secretion SARS-CoV-2 & FLU Antigen (Rapid) - Final Physical Exam Narrative GENERAL: cooperative HEENT: Atraumatic; normocephalic EYES; Anicteric, Normal Conjunctiva NECK; supple, normal thyroid, RESPIRATORY: Diminished to auscultation CARDIOVASCULAR: Regular S1 S2, GI: soft, normoactive bowel sounds, : No Renal angle tenderness; EXTREMITIES: No edema, no clubbing, MUSCULOSKELETAL: Contractures involving lower extremities NEURO: Awake; no lateralizing signs. SKIN: Stage IV sacral decubitus PSYCH; Flat affect Assessment & Plan Assessment/Plan (1) Sepsis: (2) UTI (urinary tract infection): (3) Sacral decubitus ulcer, stage IV: PLAN: Plan 58-year-old male history of PE and paraplegia as well as chronic sacral decubitus presented 10/04/2023 for fever and lethargy. Was in his normal state of health and then became acutely ill and was found to have a fever and concerns for sepsis and was admitted to the hospital. 1. Sepsis ? Secondary to UTI with E. coli as well as infected decubitus. ? 10/11/2023 sepsis resolved 2. Acute cystitis with ESBL E. coli ? patient remains on broad-spectrum antibiotic therapy final identification and sensitivities pending ?10/07/2023; Patient urine culture positive for ESBL. Wound cultures growing multiple organisms fight identification and sensitivities pending. Patient was on Zosyn discontinued started on meropenem. Consult placed to infectious disease Case discussed with Dr. Haney 3. Infected stage IV decubitus ulcer ? Patient cultures growing Multiple organisms including beta septic, staph species, Gram positive rods, gram-negative lactose chair finisher. Patient remains on broad-spectrum antibiotic therapy MRI was ordered to rule out osteomyelitis consultation placed to ID ? 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 Mild degenerative arthrosis of the hip joints bilaterally. Mild trochanteric bursitis bilaterally. Mild marrow stress edema at the anterior- inferior iliac spines bilaterally, left greater than right, probably the sequelae of old avulsion injuries. No evidence of acute osteomyelitis. -10/08/2023; final wound cultures Wound Culture Preliminary 10/08/23 Organism 1 Streptococcus agalactiae (B) Amount Growth 1+ Organism 2 Meth. resistant Staph. aureus Amount Growth 1+ mecA Testing not performed Organism 3 Corynebacterium striatum Amount Growth 2+ Organism 4 Proteus mirabilis Amount Growth Rare Organism 5 ESBL Escherichia coli Amount Growth Very Rare MARKER ESBL producing Organism ?Deferred antibiotic therapy to ID ? 10/09/2023 patient remains on antibiotic therapy duration of therapy as recommended by ID 4.. Paraplegia following a 4 see accident ? Requested for PT OT eval and social science research assistant to assist with discharge planning 5. Myeloproliferative disorder ? Patient has leukocytosis as well as thrombocytosis patient is on anagrelide 6. History of previous pulmonary embolism ? Patient is on apixaban 7. Stage IV decubitus ulcer ? Present on admission ? Consult placed to wound care nurse for dressing changes MRI ordered to rule out osteomyelitis ? 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 Mild degenerative arthrosis of the hip joints bilaterally. Mild tr ochanteric bursitis bilaterally. Mild marrow stress edema at the anterior- inferior iliac spines bilaterally, left greater than right, probably the sequelae of old avulsion injuries. No evidence of acute osteomyelitis. 8. Tobacco dependence - Counseled on cessation, offered nicotine patch for tobacco cravings 9. Physical deconditioning - Requested for PT OT eval and social science research assistant to assist with discharge planning ? 10/10/2023 accepted for transfer to [facility]. Awaiting bed availability ? 10/11/2023 plan is for patient to be transferred to [facility] facility on 10/13/2023 10. DVT prophylaxis ? Patient is on apixaban Time spent in the patient's overall evaluation,decision-making process, review of diagnostic data, adjustment of management, discussion with other providers, nursing nursing and ancillary staff involved in patient's care documentation, 35 minutes Charges/Coding Visit Charges Inpatient E&M: 36167 [facility] Hosp L2
[2023-10-11 08:43] VITALS: BP 107/73; PULSE 104; RESP 16; TEMP 36.8; O2SAT 94
[2023-10-11 08:44] LABS: Anion Gap 4 (5-15); BUN 10 mg/dL (7-18); BUN/Creat Ratio 15.9 RATIO (10-20); Calcium,Total 9.3 mg/dL (8.5-10.1); Chloride 104 mmol/L (98-107); Creatinine, Serum 0.63 mg/dL (0.70-1.30); EST Glomerular Filtration Rate 140 mL/min (>60); Est Glom Filt Rate - Afr Amer 169 mL/min (>60); Estimated Creatinine Clearance 141.88 ml/min; Glucose 92 mg/dL (74-106); Potassium 3.8 mmol/L (3.5-5.1); Sodium Level 133 mmol/L (136-145)
[2023-10-11] MEDS: Ensure Plus High Protein 120 ML LIQUID PO (08:56)
[2023-10-11] MEDS: APIXABAN 5 MG TABLET PO ×2 (08:57→21:16)
[2023-10-11] MEDS: Menthol/Lanolin/Calamine/Znox 113 GM Tube 1 APPLIC TOPICAL ×3 (08:57→21:19)
[2023-10-11 10:09] LABS: Anisocytosis 1+; Platelet Estimate MKD INC (ADEQ)
[2023-10-11 14:40] VITALS: BP 90/71; PULSE 99; RESP 16; TEMP 36.4; O2SAT 93
[2023-10-11 16:40] VITALS: BP 121/79; PULSE 99; RESP 16; TEMP 36.2; O2SAT 95
[2023-10-11] MEDS: Gabapentin 400 MG Capsule PO (21:16)
[2023-10-11] MEDS: Acetaminophen 325 MG Tablet 650 MG PO (21:16)
[2023-10-11] MEDS: 0.9% Saline Lock 10 ML Syringe IV (21:20)
[2023-10-11 22:40] VITALS: BP 123/76; PULSE 81; RESP 18; TEMP 36.6; O2SAT 97
[2023-10-12 04:40] VITALS: BP 116/84; PULSE 98; RESP 16; TEMP 36.3; O2SAT 96
[2023-10-12] MEDS: cycloBENZAPRine HCl 10 MG Tablet PO ×3 (05:01→21:37)
[2023-10-12] MEDS: Nystatin Powder 15gm Bottle 1 APPLIC TOPICAL ×3 (05:01→21:37)
[2023-10-12] MEDS: Meropenem 1 GM in 0.9% Normal Saline (100mL MB+) 100 ML IV ×3 (05:01→21:54)
[2023-10-12 07:22] LABS: Absolute Lymphocyte Count 2.91 X10^3/uL (0.83-4.51); Absolute Neutrophil Count 11.6 X10^3/uL (2.0-7.7); Basophil# 0.17 X10^3/uL; Basophil% 0.9 % (0-1); Eosinophil# 1.25 X10^3/uL; Eosinophils% 6.9 % (0-5); Hematocrit 36.4 % (40-54); Hemoglobin 10.6 g/dL (13.0-16.5); Lymphocyte # 2.91 X10^3/ul (0.83-4.51); Mean Corp Hgb Conc 29.1 g/dL (32-36); Mean Corpuscular Hgb 24.9 pg (27.0-32.0); Mean Corpuscular Volume 85.4 fL (80-94); Mean Platelet Vol. 9.9 fl (6.2-12.0); Monocyte# 1.72 X10^3/uL; Monocyte% 9.5 % (0-10); NRBC Flagged by Analyzer 0.2 % (0-5); Neutrophil # 11.59 X10^3/uL (2.7-7.7); Neutrophil % 63.7 % (47-70); POSITIVE DIFFERENTIAL YES; POSITIVE MORPHOLOGY YES; Platelet Count 723 K/mm3 (150-450); RBC Distribution Width CV 23.3 % (11.6-14.6); RBC Distribution Width SD 69.3 fl (35.1-43.9); Red Blood Count 4.26 M/mm3 (4.6-6.2); White Blood Count 18.2 K/mm3 (4.4-11.0)
[2023-10-12 07:26] LABS: Differential Indicated SCAN CRITERIA MET
[2023-10-12 07:50] LABS: Anion Gap 3 (5-15); BUN 13 mg/dL (7-18); BUN/Creat Ratio 23.8 RATIO (10-20); Calcium,Total 9.8 mg/dL (8.5-10.1); Chloride 109 mmol/L (98-107); Creatinine, Serum 0.55 mg/dL (0.70-1.30); EST Glomerular Filtration Rate 164 mL/min (>60); Est Glom Filt Rate - Afr Amer 199 mL/min (>60); Estimated Creatinine Clearance 162.52 ml/min; Glucose 89 mg/dL (74-106); Potassium 4.1 mmol/L (3.5-5.1); Sodium Level 134 mmol/L (136-145)
--- NOTE | 2023-10-12 07:54 | PCM.PN.HOSP ---
Reason for Visit Reason for Visit: Diagnoses Sepsis, unspecified organism (10/04/23) Pressure ulcer of sacral region, stage 4 (10/04/23) Urinary tract infection, site not specified (10/04/23) Subjective Subjective Seen in good spirits. Plan is for patient to be transferred to an inpatient rehab unit at [facility] on 10/13/2023 Objective Data Objective Data Vital Signs: Vital Signs Temp Pulse Resp BP Pulse Ox O2 Del Method 97.4 F L 98 16 116/84 H 96 Room Air 10/12/23 04:40 10/12/23 04:40 10/12/23 04:40 10/12/23 04:40 10/12/23 04:40 10/12/23 04:40 Oxygen Delivery Method Room Air Weight: 77.54 kg Body Mass Index (BMI) 21.3 Intake & Output: Intake and Output for Last 24 Hours 10/10/23 10/11/23 10/12/23 23:59 23:59 23:59 Intake Total 2700 / 2700 1680 / 1920 840 / 840 Output Total 2900 / 2900 1875 / 2275 850 / 850 Balance -200 / -200 -195 / -355 -10 / -10 Lab / Micro Data 10/12/23 06:41 10/12/23 06:41 Labs: Laboratory Results - last 24 hr 10/11/23 06:50: WBC 18.6 H, RBC 4.02 L, Hgb 10.7 L, Hct 33.2 L, MCV 82.6, MCH 26.6 L, MCHC 32.2 D, RDW Std Deviation 64.6 H, RDW Coeff of Lauren 22.4 H, Plt Count 858 H*, MPV 9.3, Immature Gran % (Auto) 2.200 H, Neut % (Auto) 63.6, Lymph % (Auto) 21.4, [place] % (Auto) 8.0, Eos % (Auto) 4.2, Baso % (Auto) 0.6, Absolute Neuts (auto) 11.8 H, Absolute Lymphs (auto) 3.97, Nucleated RBC % 0.2, Diff Path Review March, Platelet Estimate MKD INC, Anisocytosis 1+, Sodium 133 L, Potassium 3.8, Chloride 104, Carbon Dioxide 25.0, Anion Gap 4 L, BUN 10, Creatinine 0.63 L, Estim Creat Clear Calc 141.88, Est GFR (MDRD) Af Amer 169, Est GFR (MDRD) Non-Af 140, BUN/Creatinine Ratio 15.9, Glucose 92, Calcium 9.3 10/12/23 06:41: WBC 18.2 H, RBC 4.26 L, Hgb 10.6 L, Hct 36.4 L, MCV 85.4, MCH 24.9 L, MCHC 29.1 L D, RDW Std Deviation 69.3 H, RDW Coeff of Lauren 23.3 H, Plt Count 723 H, MPV 9.9, Immature Gran % (Auto) 3.000 H, Neut % (Auto) 63.7, Lymph % (Auto) 16.0 L, [place] % (Auto) 9.5, Eos % (Auto) 6.9 H, Baso % (Auto) 0.9, Absolute Neuts (auto) 11.6 H, Absolute Lymphs (auto) 2.91, Nucleated RBC % 0.2, Sodium 134 L, Potassium 4.1, Chloride 109 H, Carbon Dioxide 22.0, Anion Gap 3 L, BUN 13, Creatinine 0.55 L, Estim Creat Clear Calc 162.52, Est GFR (MDRD) Af Amer 199, Est GFR (MDRD) Non-Af 164, BUN/Creatinine Ratio 23.8 H, Glucose 89, Calcium 9.8 Micro: Microbiology 10/04/23 19:40 Blood Culture (Wb) - Anticubital Left Blood Culture - Final No growth in 5 days. 10/04/23 20:03 Blood Culture (Wb) - Right Hand Blood Culture - Final No growth in 5 days. 10/04/23 20:05 Wound - Buttock Gram Stain - Final 10/04/23 20:05 Wound - Buttock Wound Culture - Final Streptococcus agalactiae (B) Meth. resistant Staph. aureus Corynebacterium striatum Proteus mirabilis ESBL Escherichia coli 10/04/23 20:05 Wound - Buttock Anaerobic Culture - Final Fusobacterium nucleatum 10/04/23 20:55 Urine Catheter - Catheter Urine Culture - Final ESBL Escherichia coli 10/04/23 19:50 Nasal Secretion SARS-CoV-2 & FLU Antigen (Rapid) - Final Physical Exam Narrative GENERAL: cooperative HEENT: Atraumatic; normocephalic EYES; Anicteric, Normal Conjunctiva NECK; supple, normal thyroid, RESPIRATORY: Diminished to auscultation CARDIOVASCULAR: Regular S1 S2, GI: soft, normoactive bowel sounds, : No Renal angle tenderness; EXTREMITIES: No edema, no clubbing, MUSCULOSKELETAL: Contractures involving lower extremities NEURO: Awake; no lateralizing signs. SKIN: Stage IV sacral decubitus PSYCH; Flat affect Assessment & Plan Assessment/Plan (1) Sepsis: (2) UTI (urinary tract infection): (3) Sacral decubitus ulcer, stage IV: PLAN: Plan 58-year-old male history of PE and paraplegia as well as chronic sacral decubitus presented 10/04/2023 for fever and lethargy. Was in his normal state of health and then became acutely ill and was found to have a fever and concerns for sepsis and was admitted to the hospital. 1. Sepsis ? Secondary to UTI with E. coli as well as infected decubitus. ? 10/11/2023 sepsis resolved 2. Acute cystitis with ESBL E. coli ? patient remains on broad-spectrum antibiotic therapy final identification and sensitivities pending ?10/07/2023; Patient urine culture positive for ESBL. Wound cultures growing multiple organisms fight identification and sensitivities pending. Patient was on Zosyn discontinued started on meropenem. Consult placed to infectious disease Case discussed with Dr. Haney ? 10/12/2023 plan is to continue antibiotics for total of 10 days 3. Infected stage IV decubitus ulcer ? Patient cultures growing Multiple organisms including beta septic, staph species, Gram positive rods, gram-negative lactose delivery rep. Patient remains on broad-spectrum antibiotic therapy MRI was ordered to rule out osteomyelitis consultation placed to ID ? 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 Mild degenerative arthrosis of the hip joints bilaterally. Mild trochanteric bursitis bilaterally. Mild marrow stress edema at the anterior-inferior iliac spines bilaterally, left greater than right, probably the sequelae of old avulsion injuries. No evidence of acute osteomyelitis. -10/08/2023; final wound cultures Wound Culture Preliminary 10/08/23-832 Organism 1 Streptococcus agalactiae (B) Amount Growth 1+ Organism 2 Meth. resistant Staph. aureus Amount Growth 1+ mecA Testing not performed Organism 3 Corynebacterium striatum Amount Growth 2+ Organism 4 Proteus mirabilis Amount Growth Rare Organism 5 ESBL Escherichia coli Amount Growth Very Rare MARKER ESBL producing Organism ?Deferred antibiotic therapy to ID ? 10/09/2023 patient remains on antibiotic therapy duration of therapy as recommended by ID 4.. Paraplegia following a 4 see accident ? Requested for PT OT eval and manager social responsibility to assist with discharge planning 5. Myeloproliferative disorder ? Patient has leukocytosis as well as thrombocytosis patient is on anagrelide 6. History of previous pulmonary embolism ? Patient is on apixaban 7. Stage IV decubitus ulcer ? Present on admission ? Consult placed to wound care nurse for dressing changes MRI ordered to rule out osteomyelitis ? 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 Mild degenerative arthrosis of the hip joints bilaterally. Mild trochanteric bursitis bilaterally. Mild marrow stress edema at the anterior-inferior iliac spines bilaterally, left greater than right, probably the sequelae of old avulsion injuries. No evidence of acute osteomyelitis. 8. Tobacco dependence - Counseled on cessation, offered nicotine patch for tobacco cravings 9. Physical deconditioning - Requested for PT OT eval and manager social responsibility to assist with discharge planning ? 10/10/2023 accepted for transfer to [facility]. Awaiting bed availability ? 10/11/2023 plan is for patient to be transferred to [facility] facility on 10/13/2023 10. DVT prophylaxis ? Patient is on apixaban Time spent in the patient's overall evaluation,decision-making process, review of diagnostic data, adjustment of management, discussion with other providers, nursing nursing and ancillary staff involved in patient's care documentation, 35 minutes Charges/Coding Visit Charges Inpatient E&M: 72178 Subs Hosp L2
[2023-10-12] MEDS: Acetaminophen 325 MG Tablet 650 MG PO ×2 (08:29→19:50)
[2023-10-12] MEDS: Ensure Plus High Protein 120 ML LIQUID PO (08:29)
[2023-10-12] MEDS: APIXABAN 5 MG TABLET PO ×2 (08:30→21:37)
[2023-10-12] MEDS: Menthol/Lanolin/Calamine/Znox 113 GM Tube 1 APPLIC TOPICAL ×4 (08:30→21:55)
[2023-10-12 10:22] VITALS: BP 113/82; PULSE 96; RESP 14; TEMP 36.5; O2SAT 96
[2023-10-12] MEDS: 0.9% Normal Saline (250mL Bag) 250 ML 15 ML IV (13:01)
[2023-10-12] MEDS: 0.9% Saline Lock 10 ML Syringe IV (13:02)
--- NOTE | 2023-10-12 13:31 | NURSING ---
1200 report called to Sophia BHATIA
[2023-10-12 17:04] VITALS: BP 118/78; PULSE 106; RESP 16; TEMP 37.1; O2SAT 97
[2023-10-12 21:20] VITALS: BP 122/81; PULSE 98; RESP 20; TEMP 36.9; O2SAT 95
[2023-10-12] MEDS: Gabapentin 400 MG Capsule PO (21:50)
[2023-10-13 04:30] VITALS: BP 102/57; PULSE 89; RESP 16; TEMP 36.9; O2SAT 95
[2023-10-13] MEDS: cycloBENZAPRine HCl 10 MG Tablet PO ×3 (05:43→22:21)
[2023-10-13] MEDS: Nystatin Powder 15gm Bottle 1 APPLIC TOPICAL (05:44)
[2023-10-13] MEDS: Meropenem 1 GM in 0.9% Normal Saline (100mL MB+) 100 ML IV (05:44)
[2023-10-13] MEDS: Ensure Plus High Protein 120 ML LIQUID PO (09:34)
[2023-10-13] MEDS: APIXABAN 5 MG TABLET PO ×2 (09:38→22:21)
[2023-10-13] MEDS: Menthol/Lanolin/Calamine/Znox 113 GM Tube 1 APPLIC TOPICAL ×4 (09:38→22:20)
[2023-10-13 09:43] VITALS: BP 115/79; PULSE 99; RESP 18; TEMP 36.6; O2SAT 99
--- NOTE | 2023-10-13 10:51 | WOUNDNOTE ---
wound photo: sacrum
--- NOTE | 2023-10-13 12:37 | PN.ID_ITS ---
Physical Exam Narrative Sleeping this AM, no fever, no events overnight Const no apparent distress Resp normal air movement and clear to auscultation bilaterally Cardio regular rate and regular rhythm GI soft to palpation, non-tender and non-distended Extremity General Extremity: Negative for edema Skin no rashes or lesions noted ID ID: Route of nutrition/ use of supplements: [] Nutritional Intake: [] IV Site: [] Kothari Catheter: [] Assessment & Plan Assessment/Plan (1) UTI (urinary tract infection): PLAN: esbl ecoli uti, on spencer. Will change to ertapenem and write for 3 more [facility]. Will sign off, d/w home health care case manager
[2023-10-13] MEDS: Ertapenem Sod 1 GM in 0.9% Normal Saline (50mL MB+) 50 ML IV (12:49)
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
--- NOTE | 2023-10-13 14:11 | PHA.DC.MR.R ---
Pharmacy [place] Med Reconciliation Pharmacy Service has performed discharge medication reconciliation for this patient. The patient's discharge medication list was reviewed for discrepancies and discrepancies were resolved. Medications at Discharge Home Medications anagrelide 1 mg capsule 2 mg PO BID 10/04/23 apixaban 5 mg tablet (Eliquis) 5 mg PO BID 10/04/23 cyclobenzaprine 10 mg tablet 10 mg PO TID 10/04/23 gabapentin 400 mg capsule 400 mg PO QHS 10/04/23 acetaminophen 325 mg tablet 650 mg (2 x 325 mg) PO Q4H PRN PRN Pain 1-10 Or Fever #0 tabs 10/13/23 calcium carbonate 200 mg calcium (500 mg) chewable tablet 500 mg (2.5 x 200 mg calcium (500 mg)) PO Q4H PRN PRN Indigestion #0 tabs 10/13/23 ertapenem 1 gram solution for injection 1 g IV Q24 3 days #3 ea 10/13/23 food supplemt, lactose-reduced 0.08 gram-1.5 kcal/mL oral liquid (Ensure Plus High Protein) 120 ml PO TIDCM #0 mL 10/13/23 menthol 0.44 %-zinc oxide 20.6 % topical ointment (Calmoseptine) 1 applic topical 4X/DAY #0 grams 10/13/23 nystatin 100,000 unit/gram topical powder (Nyamyc) 1 applic topical TID #0 grams 10/13/23
--- NOTE | 2023-10-13 17:00 | CASEMGMT ---
Social Work This curriculum writer received notice that patient is ready for discharge. Met with patient in room to discuss, as nursing informed this curriculum writer that patient wanted to transport by private vehicle. This curriculum writer checked with Dr. Lentz, patient's hospitalist and physician in agreement with private vehicle transport. Patient reports that traveling by caught in wheelchair is uncomfortable, and feels better traveling and either his sisters or mother's vehicle. Reports that his sister's vehicle is easier to transfer into but can manage with his mother's vehicle. This curriculum writer left a message for patient's sister Syeda at [phone] to call this curriculum writer. Also try the patient's mother Nubia at [phone]. There is no voicemail set up on the mother's phone. Conferred with discharge home planning consultant salesperson who went back to the room to touch base with patient, to see if the patient can reach his family. Syeda reportedly answered the phone for the patient and informed the patient that she is in class and would have to call patient back. [facility] rehab communicated with discharge home planning consultant salesperson that is too late in the day to accept patient this evening, and that accepting physician would like to see updated pictures of patient's wound. Would plan on discharging patient 10/14/2023. This curriculum writer met with patient and updated. Asked patient to confer with his family and find a time that the family can come to transport patient on 10/14/2023. This curriculum writer updated Dr. Lentz. Note patient's pending Medicaid number: [id number]. This curriculum writer did communicate via secure email to [facility] first source program this pending number. Plan: [facility] acute rehab unit. -LIAN Ramirez, ENGINE ASSEMBLER *This note was generated with [employer] dictation software. It may contain incorrect words, spelling, and punctuation that were not noted in review of the chart prior to signing*
[2023-10-13] MEDS: 0.9% Normal Saline (250mL Bag) 250 ML 15 ML IV (18:22)
[2023-10-13] MEDS: Acetaminophen 325 MG Tablet 650 MG PO (18:23)
[2023-10-13 18:27] VITALS: BP 104/73; PULSE 62; RESP 16; TEMP 36.5; O2SAT 96
--- NOTE | 2023-10-13 18:49 | PN.HOSP_ITS ---
Hospitalist Note Patient was discharged to [facility] however we were notified that he was not completely fully excepted but may be tomorrow. Discharge was held.
--- NOTE | 2023-10-13 18:49 | PCM.HOSP.N ---
Hospitalist Note Patient was discharged to [facility] however we were notified that he was not completely fully excepted but may be tomorrow. Discharge was held.
[2023-10-13] MEDS: Gabapentin 400 MG Capsule PO (22:26)
[2023-10-13 22:28] VITALS: BP 109/71; PULSE 92; RESP 18; TEMP 36.3; O2SAT 96
[2023-10-14 04:14] VITALS: BP 111/79; PULSE 110; RESP 18; TEMP 36.5; O2SAT 95
[2023-10-14] MEDS: cycloBENZAPRine HCl 10 MG Tablet PO (06:18)
[2023-10-14 07:43] LABS: Pathologist Review Reviewed
[2023-10-14 07:46] LABS: Pathologist Review Reviewed
[2023-10-14 07:53] LABS: Pathologist Review Reviewed
--- NOTE | 2023-10-14 08:59 | CASEMGMT ---
Discharge Planning Requested updates sent to [facility]. Patient does not have a time yet when his sister can pick him up and asked when is the latest that [facility] accepts new patient. Msg sent via [employer] to [facility]. Awaiting response. Tanika Burris, Discharge Planning Asst.
--- NOTE | 2023-10-14 08:59 | WOUNDNOTE ---
Pt states he is scheduled to be transported to [facility] this am. If dressing to sacrum remains D&I, will leave in place since the nurse will need to assess on admission. pt appreciative. denies further needs at this time.
[2023-10-14 09:35] LABS: Absolute Lymphocyte Count 6.22 X10^3/uL (0.83-4.51); Absolute Neutrophil Count 10.2 X10^3/uL (2.0-7.7); Basophil# 0.17 X10^3/uL; Basophil% 0.8 % (0-1); Eosinophil# 1.94 X10^3/uL; Eosinophils% 9.4 % (0-5); Hematocrit 41.3 % (40-54); Hemoglobin 12.2 g/dL (13.0-16.5); Lymphocyte # 6.22 X10^3/ul (0.83-4.51); Lymphocyte % 30.1 % (19-41); Mean Corp Hgb Conc 29.5 g/dL (32-36); Mean Corpuscular Volume 84.6 fL (80-94); Mean Platelet Vol. 9.5 fl (6.2-12.0); Monocyte# 1.62 X10^3/uL; Monocyte% 7.8 % (0-10); NRBC Flagged by Analyzer 0.5 % (0-5); Neutrophil # 10.21 X10^3/uL (2.7-7.7); Neutrophil % 49.6 % (47-70); POSITIVE DIFFERENTIAL YES; POSITIVE MORPHOLOGY YES; Platelet Count 518 K/mm3 (150-450); RBC Distribution Width CV 23.7 % (11.6-14.6); RBC Distribution Width SD 68.6 fl (35.1-43.9); Red Blood Count 4.88 M/mm3 (4.6-6.2); White Blood Count 20.6 K/mm3 (4.4-11.0)
[2023-10-14 09:43] VITALS: BP 115/83; PULSE 92; RESP 16; TEMP 36.4; O2SAT 96
[2023-10-14] MEDS: APIXABAN 5 MG TABLET PO (09:46)
[2023-10-14] MEDS: Ertapenem Sod 1 GM in 0.9% Normal Saline (50mL MB+) 50 ML IV (09:50)
[2023-10-14] MEDS: 0.9% Saline Lock 10 ML Syringe IV ×2 (09:51→10:59)
[2023-10-14 09:53] LABS: Differential Indicated SCAN CRITERIA MET
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
[2023-10-14 10:09] LABS: Anion Gap 6 (5-15); BUN 17 mg/dL (7-18); BUN/Creat Ratio 26.2 RATIO (10-20); Calcium,Total 10.3 mg/dL (8.5-10.1); Chloride 106 mmol/L (98-107); Creatinine, Serum 0.65 mg/dL (0.70-1.30); EST Glomerular Filtration Rate 134 mL/min (>60); Est Glom Filt Rate - Afr Amer 163 mL/min (>60); Estimated Creatinine Clearance 137.52 ml/min; Glucose 91 mg/dL (74-106); Potassium 4.2 mmol/L (3.5-5.1); Sodium Level 137 mmol/L (136-145)
[2023-10-14 10:15] LABS: Anisocytosis 2+; Differential Comment SCANNED; Platelet Morphology LARGE
[2023-10-14 10:16] LABS: Hypochromasia 1+; Macrocytosis 1+; Microcytosis 1+
--- NOTE | 2023-10-14 10:24 | CASEMGMT ---
Discharge Planning Discharge summary, med list, and transport time sent to [facility] via [facility]. Physicians will transport patient by cot at 11a. Nursing, SW, and patient updated. Tanika Burris, Discharge Planning Asst.
[2023-10-14] MEDS: HYDROmorphone 1 MG/ML Syringe IV (10:58)
--- NOTE | 2023-10-14 11:26 | NURSING ---
REPORT CALLED TO [facility] AND SPOKE WITH MARIA DOLORES- THELMA HERE TO GET PT
[2023-10-16 08:40] LABS: Pathologist Review Reviewed
== END 2023-10-14 11:22 | DRG 871 ==
LOC: ED 22:15 → PCU 23:54 → MS3 10-12 12:11
PROVIDERS: Internal Medicine; Emergency Provider Emergency Medicine; Visit Provider Internal Medicine
DX: A41.51 Sepsis due to Escherichia coli [E. coli] (principal); L89.154 Pressure ulcer of sacral region, stage 4; G82.20 Paraplegia, unspecified; D47.1 Chronic myeloproliferative disease; M87.051 Idiopathic aseptic necrosis of right femur; N30.00 Acute cystitis without hematuria; Z16.12 Extended spectrum beta lactamase (ESBL) resistance; D63.8 Anemia in other chronic diseases classified elsewhere; F17.210 Nicotine dependence, cigarettes, uncomplicated; M16.0 Bilateral primary osteoarthritis of hip; M70.62 Trochanteric bursitis, left hip; M70.61 Trochanteric bursitis, right hip; Z79.01 Long term (current) use of anticoagulants; B95.62 Methicillin resistant Staphylococcus aureus infection as the cause of diseases classified elsewhere; N31.9 Neuromuscular dysfunction of bladder, unspecified; B96.89 Other specified bacterial agents as the cause of diseases classified elsewhere; Z79.899 Other long term (current) drug therapy; Z86.711 Personal history of pulmonary embolism
CPT/HCPCS: 36415; 36569; 71045; 72195; 74177; 80048; 80053; 80202; 81001; 82728; 83540; 83550; 83605; 85025; 85610; 85652; 85730; 86140; 87040; 87070; 87075; 87077; 87086; 87088; 87186; 87205; 87428; 87640; 93005; 97110; 97162; 97166; 97530; 97535; 97802; 99285; 99406; J2185; J7030; J7040; J7050; Q9967; A4216